=== PATIENT | female | born 1960 | race Caucasian/White ===

== ENCOUNTER 2017-05-17 20:53 | Emergency (ER) | payer MEDICAID ==
[2017-05-17 21:56] LABS: BASOPHILS 0.3 % (0-2); EOSINOPHILS 1.1 % (0-7); HEMATOCRIT 41.8 % (36.0-48.0); HEMOGLOBIN 13.8 g/dL (12-16); IMMATURE GRANULOCYTES 0.3 % (0-5); LYMPHOCYTES 12.8 % (15-50); MCH 33.3 pg (26.0-34.0); MCV 100.7 fL (80.0-100.0); MEAN PLATELET VOLUME 9.1 fL (7.4-10.4); MONOCYTES 5.8 % (2-11); NEUTROPHILS 79.7 % (40-80); PLATELET COUNT 310 10x3/uL (130-400); RBC 4.15 10x6/uL (4.00-5.40); RDW 14.8 % (11.5-14.5); WBC 14.8 10x3/uL (4.8-10.8)
[2017-05-17 22:36] LABS: ALBUMIN 3.8 g/dL (3.4-5.0); ALKALINE PHOSPHATASE 85 U/L (46-116); ALT (SGPT) 21 U/L (10-68); BILIRUBIN - TOTAL 0.17 mg/dL (0.2-1.3); CALC OSMOLALITY 271 mosm/kg (275-300); CALCIUM 8.6 mg/dL (8.5-10.1); CARBON DIOXIDE 28.5 mmol/L (21.0-32.0); CHLORIDE - SERUM 98 mmol/L (98-107); CREATINE KINASE 171 UL (21-215); CREATININE - SERUM 0.9 mg/dL (0.6-1.3); GLUCOSE 88 mg/dL (74-106); LIPASE 86 U/L (73-393); POTASSIUM - SERUM 3.8 mmol/L (3.5-5.1); PRO BNP 119 pg/mL (0-125); PROTEIN - SERUM 7.4 g/dL (6.4-8.2); SODIUM 136 mmol/L (136-145); UREA NITROGEN 16 mg/dL (7-18); eGFR NON AFRICAN AMERICAN 69 mL/min (90-120)
[2017-05-17 22:38] LABS: TROPONIN-I < 0.017 ng/mL (0.000-0.060)
== END 2017-05-17 23:40 | disposition home or self-care (01) ==
LOC: D.ER 20:53
PROVIDERS: Family Medicine
DX: R56.9 Unspecified convulsions (principal)

== ENCOUNTER 2018-08-24 14:17 | Inpatient (IN) | payer MEDICARE ==
[~2018-08-24] VITALS: Ht 168.9 cm; Wt 59.1 kg
[2018-08-24] MEDS ORDERED: ALBUTEROL1.25 MG/3 INH (14:25)
[2018-08-24 14:46] LABS: BASOPHILS 0.2 % (0-2); EOSINOPHILS 2.5 % (0-7); HEMATOCRIT 37.2 % (36.0-48.0); HEMOGLOBIN 11.9 g/dL (12-16); IMMATURE GRANULOCYTES 0.2 % (0-5); LYMPHOCYTES 13.3 % (15-50); MCH 29.6 pg (26.0-34.0); MCV 92.5 fL (80.0-100.0); MEAN PLATELET VOLUME 8.8 fL (7.4-10.4); MONOCYTES 5.6 % (2-11); NEUTROPHILS 78.2 % (40-80); RBC 4.02 10x6/uL (4.00-5.40); RDW 15.7 % (11.5-14.5); WBC 10.5 10x3/uL (4.8-10.8)
[2018-08-24 14:56] LABS: APTT 31.8 SECONDS (22.8-39.4); INR 1.02 (0.85-1.17); PROTIME 12.9 SECONDS (11.6-15.0)
[2018-08-24 14:57] LABS: PLATELET COUNT 492 10x3/uL (130-400)
[2018-08-24 15:00] VITALS: BP 113/74
[2018-08-24 15:17] LABS: ALBUMIN 2.7 g/dL (3.4-5.0); ALKALINE PHOSPHATASE 122 U/L (46-116); ALT (SGPT) 15 U/L (10-68); BILIRUBIN - TOTAL 0.35 mg/dL (0.2-1.3); CALC OSMOLALITY 283 mosm/kg (275-300); CALCIUM 8.6 mg/dL (8.5-10.1); CARBON DIOXIDE 35.6 mmol/L (21.0-32.0); CHLORIDE - SERUM 101 mmol/L (98-107); CKMB 0.8 U/L (0.0-3.6); CREATINE KINASE 103 UL (21-215); CREATININE - SERUM 0.5 mg/dL (0.6-1.3); GLUCOSE 107 mg/dL (74-106); PRO BNP 1076 pg/mL (0-125); PROTEIN - SERUM 7.3 g/dL (6.4-8.2); SODIUM 143 mmol/L (136-145); TROPONIN-I < 0.017 ng/mL (0.000-0.060); UREA NITROGEN 10 mg/dL (7-18); eGFR NON AFRICAN AMERICAN > 90 mL/min (90-120)
[2018-08-24 16:00] VITALS: BP 111/82
[2018-08-24 17:00] VITALS: BP 117/73
[2018-08-24 20:00] VITALS: BP 126/80
[2018-08-25 02:14] VITALS: Ht 168.9 cm; Wt 59.1 kg
--- NOTE | 2018-08-25 03:28 | NUR ---
1930) REC'D IN BED LYIN ON RT. SIDE VISITORS AT BEDSIDE. DENIES ANY RESP. DIFFICULTY AT PRESENT TIME 02 2L NC. WILL CONTINUE TO MONITOR FOR ANY CHGES IN RESP. STATUS AND FOLLOW CURRENT PLAN OF CARE.
[2018-08-25 04:00] VITALS: BP 156/99
--- NOTE | 2018-08-25 04:29 | NUR ---
I have reviewed this patient and I concur with the Shift Assessment completed by the Licensed Practical Nurse today this shift.
[2018-08-25 05:49] LABS: BASOPHILS 0.3 % (0-2); EOSINOPHILS 4.3 % (0-7); HEMATOCRIT 35.6 % (36.0-48.0); HEMOGLOBIN 11.1 g/dL (12-16); IMMATURE GRANULOCYTES 0.2 % (0-5); LYMPHOCYTES 15.1 % (15-50); MCH 28.8 pg (26.0-34.0); MCHC 31.2 g/dL (31.0-37.0); MCV 92.2 fL (80.0-100.0); MEAN PLATELET VOLUME 9.2 fL (7.4-10.4); MONOCYTES 7.6 % (2-11); NEUTROPHILS 72.5 % (40-80); PLATELET COUNT 511 10x3/uL (130-400); RBC 3.86 10x6/uL (4.00-5.40); WBC 10.2 10x3/uL (4.8-10.8)
[2018-08-25 06:10] LABS: ALBUMIN 2.5 g/dL (3.4-5.0); ALKALINE PHOSPHATASE 102 U/L (46-116); ALT (SGPT) 13 U/L (10-68); BILIRUBIN - TOTAL 0.23 mg/dL (0.2-1.3); CALC OSMOLALITY 281 mosm/kg (275-300); CALCIUM 8.5 mg/dL (8.5-10.1); CARBON DIOXIDE 31.8 mmol/L (21.0-32.0); CHLORIDE - SERUM 103 mmol/L (98-107); CREATININE - SERUM 0.5 mg/dL (0.6-1.3); GLUCOSE 97 mg/dL (74-106); POTASSIUM - SERUM 3.4 mmol/L (3.5-5.1); PROTEIN - SERUM 6.6 g/dL (6.4-8.2); SODIUM 142 mmol/L (136-145); TROPONIN-I < 0.017 ng/mL (0.000-0.060); UREA NITROGEN 11 mg/dL (7-18); eGFR NON AFRICAN AMERICAN > 90 mL/min (90-120)
[2018-08-25 08:48] VITALS: BP 114/63
--- NOTE | 2018-08-25 09:05 | NUR ---
MEDICATED WITH MORPHINE FOR C/O RIGHT RIB PAIN RATING 10/10. SISTER AT BEDSIDE. C/L IN REACH.
--- NOTE | 2018-08-25 10:35 | MORECARE ---
CASE MANAGEMENT DISCHARGE SUMMARY PATIENT: XIMENA BECK UNIT: [id number] ADM DATE: 08/24/18 AGE: 58 : 60 SEX: F ROOM/BED: D.[facility] AUTHOR: LORI OSEGUERA PHYSICIAN: REFERRING PHYSICIAN: VIANNEY CHRISTOPHER MD DATE OF SERVICE: 08/25/18 Discharge Plan Patient Name: XIMENA BECK Facility: [facility]:[place] : 1960 Planned Disposition: Anticipated Discharge Date: Discharge Date: Expected LOS: Initial Reviewer: [email or web address] Initial Review Date: 08/24/2018 Generated: 08/25/18 11:35 am Comments DCP- Discharge Planning Updated by [id number]: Kera Stewart on 08/25/18 9:[address] CM went to meet with patient, she has a visitor in the room that states "she's just starting to rest, can you come back later." Informed her I would come back at a later time. CM will continue to follow and assist with discharge planning/needs. Patient Name: XIMENA BECK Page 13858 at 1035 All edits/amendments must be made on the electronic document DICTATION DATE: 08/25/18 1034 DIVISION OPERATIONS SPECIALIST: DANNY 08/25/18 1034 RPT#: [id number] DC DATE: STATUS: ADM IN [facility] [address] [place] [address] END OF REPORT
--- NOTE | 2018-08-25 15:35 | MORECARE ---
CASE MANAGEMENT DISCHARGE SUMMARY PATIENT: XIMENA BECK UNIT: [id number] ADM DATE: 08/24/18 AGE: 58 : 60 SEX: F ROOM/BED: D.2235 AUTHOR: OUMARDOC PHYSICIAN: REFERRING PHYSICIAN: VIANNEY CHRISTOPHER MD DATE OF SERVICE: 08/25/18 Discharge Plan Patient Name: XIMENA BECK Facility: [facility]:[place] : 1960 Planned Disposition: Home Anticipated Discharge Date: Discharge Date: Expected LOS: Initial Reviewer: [id number] Initial Review Date: 08/24/2018 Generated: 08/25/18 4:35 pm Comments DCP- Discharge Planning Updated by [id number]: Kera Stewart on 08/25/18 2:[address] Patient Name: XIMENA BECK Admission Status: ER Accout number: [id number] Admission Date: 08-24-2018 : 1960 Admission Diagnosis: Attending: VIANNEY CHRISTOPHER Current LOS: 1 Anticipated DC Date: Planned Disposition: Home Primary Insurance: UNINSURED DISCOUNT PLAN Discharge Planning Comments: CM met with patient to complete initial dc planning assessment. CM educated patient on the CM role and verbal consent given by patient to complete assessment. Patient lives at home with her sister. Patient plans to return and feels this is a safe discharge. CM discussed availability of home health, rehab services, and medical equipment. Patient denied known discharge needs at this time. States she has oxygen, portable oxygen and a nebulizer. She is unsure which [employer] company supplies this. She does have Medicare A&B and I called [employer] and Edith states they already know and are getting this updated. CM will continue to follow and assist with discharge planning/needs. Risk Assessment Analyst: Kera Stewart DCP- Discharge Planning Updated by [email or web address]: Kera Stewart on 08/25/18 9:[address] CM went to meet with patient, she has a visitor in the room that states "she's just starting to rest, can you come back later." Informed her I would come back at a later time. CM will continue to follow and assist with discharge planning/needs. DCPIA - Discharge Planning Initial Assessment Updated by [email or web address]: Kera Stewart on 08/25/18 3:29 pm * Is the patient Alert and Oriented? Yes * How many steps to enter\\exit or inside your home? Ramp/0 * PCP Dr. Gomez * Pharmacy [facility] in [place] * Preadmission Environment Home with Family * ADLs Independent * Equipment Nebulizer Other Oxygen * Other Equipment Portable oxygen * List name and contact numbers for known caregivers / representatives who currently or will assist patient after discharge: Lamar - sister - unknown number * Verbal permission to speak to the caregivers and representatives has been obtained from the patient. Yes * Community resources currently utilized None * Additional services required to return to the preadmission environment? No * Can the patient safely return to the preadmission environment? Yes * Has this patient been hospitalized within the prior 30 days at any hospital? No Last DP export: 08/25/18 9:35 am Patient Name: XIMENA BECK Page 50325 at 1535 All edits/amendments must be made on the electronic document DICTATION DATE: 08/25/18 1535 INSPECTOR RUBBER STAMP DIE: DANNY 08/25/18 1535 RPT#: [id number] DC DATE: STATUS: ADM IN [facility] [address] [place] [address] END OF REPORT
[2018-08-25 16:47] VITALS: BP 109/54
--- NOTE | 2018-08-25 17:57 | NUR ---
WAS MEDICATED WITH MORPHINE FOR C/O PAIN RATING 10/10. CALL LIGHT IN REACH AT BEDSIDE.
[2018-08-25 21:19] VITALS: BP 111/71
[2018-08-26 00:31] VITALS: BP 116/66
[2018-08-26 05:19] VITALS: BP 125/77
[2018-08-26 05:35] LABS: BASOPHILS 0.4 % (0-2); EOSINOPHILS 4.3 % (0-7); HEMATOCRIT 35.3 % (36.0-48.0); HEMOGLOBIN 11.3 g/dL (12-16); IMMATURE GRANULOCYTES 0.3 % (0-5); LYMPHOCYTES 13.1 % (15-50); MCH 29.7 pg (26.0-34.0); MCV 92.7 fL (80.0-100.0); MEAN PLATELET VOLUME 8.9 fL (7.4-10.4); MONOCYTES 8.6 % (2-11); NEUTROPHILS 73.3 % (40-80); PLATELET COUNT 504 10x3/uL (130-400); RBC 3.81 10x6/uL (4.00-5.40); RDW 15.9 % (11.5-14.5); WBC 10.2 10x3/uL (4.8-10.8)
[2018-08-26 05:59] LABS: ALBUMIN 2.4 g/dL (3.4-5.0); ALKALINE PHOSPHATASE 114 U/L (46-116); ALT (SGPT) 11 U/L (10-68); CALC OSMOLALITY 285 mosm/kg (275-300); CALCIUM 8.2 mg/dL (8.5-10.1); CARBON DIOXIDE 29.2 mmol/L (21.0-32.0); CHLORIDE - SERUM 104 mmol/L (98-107); CREATININE - SERUM 0.7 mg/dL (0.6-1.3); GLUCOSE 126 mg/dL (74-106); POTASSIUM - SERUM 3.8 mmol/L (3.5-5.1); PROTEIN - SERUM 6.8 g/dL (6.4-8.2); SODIUM 142 mmol/L (136-145); UREA NITROGEN 14 mg/dL (7-18)
[2018-08-26 06:00] LABS: eGFR NON AFRICAN AMERICAN > 90 mL/min (90-120)
[2018-08-26 12:53] VITALS: BP 121/84
[2018-08-26 17:19] VITALS: BP 136/50
--- NOTE | 2018-08-26 18:24 | NUR ---
I have reviewed this patient and I concur with the Shift Assessment completed by the Licensed Practical Nurse today this shift.
[2018-08-26 19:00] VITALS: BP 120/74
--- NOTE | 2018-08-26 20:08 | NUR ---
PT GETTING READY FOR BED WHEN ENTERING THE ROOM. PT WEARING SERVICE DEVELOPER. PT HAS NO COMPLAINTS OF PAIN AT THIS TIME. STATES "I AM READY TO GO TO BED SOON, PLEASE." VERBALIZES UNDERSTANDING OF CALL LIGHT SYSTEM AND TO USE WHEN NEEDED.
[2018-08-27 07:14] LABS: BASOPHILS 0.3 % (0-2); EOSINOPHILS 5.3 % (0-7); HEMATOCRIT 32.6 % (36.0-48.0); HEMOGLOBIN 10.4 g/dL (12-16); IMMATURE GRANULOCYTES 0.2 % (0-5); LYMPHOCYTES 15.9 % (15-50); MCH 29.1 pg (26.0-34.0); MCHC 31.9 g/dL (31.0-37.0); MCV 91.3 fL (80.0-100.0); MEAN PLATELET VOLUME 9.1 fL (7.4-10.4); MONOCYTES 8.3 % (2-11); PLATELET COUNT 463 10x3/uL (130-400); RBC 3.57 10x6/uL (4.00-5.40); RDW 15.7 % (11.5-14.5); WBC 8.9 10x3/uL (4.8-10.8)
[2018-08-27 07:23] LABS: ALBUMIN 2.5 g/dL (3.4-5.0); ALKALINE PHOSPHATASE 109 U/L (46-116); BILIRUBIN - TOTAL 0.16 mg/dL (0.2-1.3); CALC OSMOLALITY 278 mosm/kg (275-300); CALCIUM 8.4 mg/dL (8.5-10.1); CARBON DIOXIDE 27.2 mmol/L (21.0-32.0); CHLORIDE - SERUM 103 mmol/L (98-107); GLUCOSE 114 mg/dL (74-106); POTASSIUM - SERUM 4.1 mmol/L (3.5-5.1); PROTEIN - SERUM 6.6 g/dL (6.4-8.2); SODIUM 139 mmol/L (136-145); UREA NITROGEN 12 mg/dL (7-18)
[2018-08-27 07:24] LABS: CREATININE - SERUM 0.5 mg/dL (0.6-1.3); eGFR NON AFRICAN AMERICAN > 90 mL/min (90-120)
[2018-08-27 07:25] LABS: ALT (SGPT) 14 U/L (10-68)
--- NOTE | 2018-08-27 07:30 | NUR ---
PT AAOX4 RESP EVEN AND NONLABORED, NO SIGNS OF DISTRESS NOTED, CL IN REACH WILL CONTINUE TO MONITOR
[2018-08-27 09:50] VITALS: BP 115/77
[2018-08-27 13:29] VITALS: BP 109/71
[2018-08-27 16:21] VITALS: BP 111/71
--- NOTE | 2018-08-27 16:49 | NUR ---
I have reviewed this patient and I concur with the Shift Assessment completed by the Licensed Practical Nurse today this shift.
[2018-08-27 20:00] VITALS: BP 127/70
--- NOTE | 2018-08-27 21:00 | NUR ---
ALERT AND ORIENTED X4. LYING ON LT SIDE IN BED. RESP IRREG, SOB WITH EXERTION. O2 @ 3L/NC. PROD COUGH NOTED WITH GREENISH BROWN SPUTUM. NO ACUTE DISTRESS. BBS EXP WHEEZES. TELEMETRY SHOWS SR WITH RATE OF 87. AMBULATORY. NS @ 10 ML/HR INFUSING IN LT WRIST WITHOUT DIFF. WAS MEDICATED WITH MORHPINE @ 1934. STILL RATES PAIN IN RIBS 10. SR ELEVATED X2. CL IN REACH.
[2018-08-28] VITALS: BP 139/80
--- NOTE | 2018-08-28 03:04 | NUR ---
REQUESTS UD. NOTIFIED RT. NO ACUTE DISTRESS. CL IN REACH.
--- NOTE | 2018-08-28 03:47 | NUR ---
MEDICATED WITH MORPHINE IVP FOR C/O PAIN RATING 10 IN RIBS. CL IN REACH.
[2018-08-28 04:00] VITALS: BP 123/81
[2018-08-28 06:57] LABS: BASOPHILS 0.4 % (0-2); EOSINOPHILS 7.1 % (0-7); HEMATOCRIT 33.3 % (36.0-48.0); HEMOGLOBIN 10.5 g/dL (12-16); IMMATURE GRANULOCYTES 0.3 % (0-5); LYMPHOCYTES 17.2 % (15-50); MCH 28.7 pg (26.0-34.0); MCHC 31.5 g/dL (31.0-37.0); MONOCYTES 11.1 % (2-11); NEUTROPHILS 63.9 % (40-80); PLATELET COUNT 478 10x3/uL (130-400); RBC 3.66 10x6/uL (4.00-5.40); RDW 15.7 % (11.5-14.5); WBC 7.2 10x3/uL (4.8-10.8)
[2018-08-28 07:17] LABS: ALBUMIN 2.5 g/dL (3.4-5.0); ALKALINE PHOSPHATASE 104 U/L (46-116); ALT (SGPT) 16 U/L (10-68); BILIRUBIN - TOTAL 0.21 mg/dL (0.2-1.3); CALCIUM 8.2 mg/dL (8.5-10.1); CARBON DIOXIDE 26.8 mmol/L (21.0-32.0); CHLORIDE - SERUM 104 mmol/L (98-107); CREATININE - SERUM 0.5 mg/dL (0.6-1.3); GLUCOSE 111 mg/dL (74-106); PROTEIN - SERUM 6.7 g/dL (6.4-8.2); SODIUM 140 mmol/L (136-145); eGFR NON AFRICAN AMERICAN > 90 mL/min (90-120)
--- NOTE | 2018-08-28 07:20 | NUR ---
PT AAOX4 RESP EVEN AND NONLABORED, NO SIGNS OF DISTRESS NOTED, CL IN REACH WILL CONTINUE TO MONITOR
[2018-08-28 07:21] LABS: CALC OSMOLALITY 277 mosm/kg (275-300); UREA NITROGEN 6 mg/dL (7-18)
[2018-08-28 12:43] VITALS: BP 132/72
[2018-08-28 16:36] VITALS: BP 125/76
--- NOTE | 2018-08-28 20:00 | NUR ---
SUPINE IN BED. A&O X 4. REPORTS PAIN /. STATES RIB FXs ARE FROM FORCEFUL COUGHING. DENIES NEEDS AT THIS TIME, WILL CONTINUE TO MONITOR.
[2018-08-28 20:38] VITALS: BP 127/79
[2018-08-29 00:42] VITALS: BP 124/71
--- NOTE | 2018-08-29 01:31 | NUR ---
I have reviewed this patient and I concur with the Shift Assessment completed by the Licensed Practical Nurse today this shift.
[2018-08-29 05:07] VITALS: BP 120/76
[2018-08-29 06:09] LABS: ALBUMIN 2.6 g/dL (3.4-5.0); ALKALINE PHOSPHATASE 129 U/L (46-116); ALT (SGPT) 16 U/L (10-68); BILIRUBIN - TOTAL 0.25 mg/dL (0.2-1.3); CALC OSMOLALITY 275 mosm/kg (275-300); CALCIUM 8.6 mg/dL (8.5-10.1); CARBON DIOXIDE 25.2 mmol/L (21.0-32.0); CHLORIDE - SERUM 103 mmol/L (98-107); CREATININE - SERUM 0.5 mg/dL (0.6-1.3); GLUCOSE 106 mg/dL (74-106); POTASSIUM - SERUM 3.9 mmol/L (3.5-5.1); PROTEIN - SERUM 7.3 g/dL (6.4-8.2); SODIUM 139 mmol/L (136-145); eGFR NON AFRICAN AMERICAN > 90 mL/min (90-120)
[2018-08-29 06:10] LABS: UREA NITROGEN 8 mg/dL (7-18)
[2018-08-29 06:52] LABS: BASOPHILS 0.1 % (0-2); EOSINOPHILS 6.4 % (0-7); HEMATOCRIT 33.2 % (36.0-48.0); HEMOGLOBIN 10.4 g/dL (12-16); IMMATURE GRANULOCYTES 0.1 % (0-5); LYMPHOCYTES 19.3 % (15-50); MCH 28.8 pg (26.0-34.0); MCHC 31.3 g/dL (31.0-37.0); MEAN PLATELET VOLUME 9.2 fL (7.4-10.4); MONOCYTES 12.3 % (2-11); NEUTROPHILS 61.8 % (40-80); PLATELET COUNT 515 10x3/uL (130-400); RBC 3.61 10x6/uL (4.00-5.40); RDW 15.9 % (11.5-14.5); WBC 7.7 10x3/uL (4.8-10.8)
[2018-08-29 08:20] VITALS: BP 127/73
[2018-08-29 12:30] VITALS: BP 108/72
--- NOTE | 2018-08-29 12:57 | NUR ---
PT STATED SHE HAS HAD FLU SHOT FOR THIS YEAR
[2018-08-29] MEDS ORDERED: MIRALAX17 GM PO (15:13)
[2018-08-29] MEDS ORDERED: HYDROCODON-ACE1 EA10 PO (15:13)
[2018-08-29] MEDS ORDERED: ZITHROMAX500 MG PO (15:15)
[2018-08-29] MEDS ORDERED: IPRAT-ALBUT 0.5-3 ML UPD (15:24)
[2018-08-29] MEDS ORDERED: ALBUTEROL SULF8.5 GM INH (15:24)
--- NOTE | 2018-08-29 17:46 | MORECARE ---
CASE MANAGEMENT DISCHARGE SUMMARY PATIENT: XIMENA BECK UNIT: [id number] ADM DATE: 08/24/18 AGE: 58 : 60 SEX: F ROOM/BED: D.2235 AUTHOR: OUMAR,DOC PHYSICIAN: REFERRING PHYSICIAN: VIANNEY CHRISTOPHER MD DATE OF SERVICE: 08/29/18 Discharge Plan Patient Name: XIMENA BECK Facility: [facility]:[place] : 1960 Planned Disposition: Home Anticipated Discharge Date: 08/29/18 Discharge Date: Expected LOS: 5 Initial Reviewer: [email or web address] Initial Review Date: 08/24/2018 Generated: 08/29/18 6:46 pm Comments DCP- Discharge Planning Updated by [id number]: Kera Stewart on 08/25/18 1:[address] Patient Name: XIMENA BECK Admission Status: ER Accout number: [id number] Admission Date: 08-24-2018 : 1960 Admission Diagnosis: Attending: VIANNEY CHRISTOPHER Current LOS: 1 Anticipated DC Date: Planned Disposition: Home Primary Insurance: UNINSURED DISCOUNT PLAN Discharge Planning Comments: CM met with patient to complete initial dc planning assessment. CM educated patient on the CM role and verbal consent given by patient to complete assessment. Patient lives at home with her sister. Patient plans to return and feels this is a safe discharge. CM discussed availability of home health, rehab services, and medical equipment. Patient denied known discharge needs at this time. States she has oxygen, portable oxygen and a nebulizer. She is unsure which [employer] company supplies this. She does have Medicare A&B and I called [employer] and Edith states they already know and are getting this updated. CM will continue to follow and assist with discharge planning/needs. Shove Up: Kera Stewart DCP- Discharge Planning Updated by [id number]: Kera Stewart on 08/25/18 8:[address] CM went to meet with patient, she has a visitor in the room that states "she's just starting to rest, can you come back later." Informed her I would come back at a later time. CM will continue to follow and assist with discharge planning/needs. DCPIA - Discharge Planning Initial Assessment Updated by [id number]: Kera Stewart on 08/25/18 3:29 pm * Is the patient Alert and Oriented? Yes * How many steps to enter\\exit or inside your home? Ramp/0 * PCP Dr. Gomez * Pharmacy [facility] in [place] * Preadmission Environment Home with Family * ADLs Independent * Equipment Nebulizer Other Oxygen * Other Equipment Portable oxygen * List name and contact numbers for known caregivers / representatives who currently or will assist patient after discharge: Lamar - - unknown number * Verbal permission to speak to the caregivers and representatives has been obtained from the patient. Yes * Community resources currently utilized None * Additional services required to return to the preadmission environment? No * Can the patient safely return to the preadmission environment? Yes * Has this patient been hospitalized within the prior 30 days at any hospital? No Last DP export: 08/25/18 1:35 pm Patient Name: XIMENA BECK Page 12650 at 1746 All edits/amendments must be made on the electronic document DICTATION DATE: 08/29/181745 CLEANING MATRON: DANNY 08/29/181745 RPT#: [id number] DC DATE: STATUS: ADM IN [facility] [address] [place] [address] END OF REPORT
[2018-08-29 17:53] VITALS: BP 105/78
--- NOTE | 2018-08-29 19:10 | MORECARE ---
CASE MANAGEMENT DISCHARGE SUMMARY PATIENT: XIMENA BECK UNIT: [id number] ADM DATE: 08/24/18 AGE: 58 : 60 SEX: F ROOM/BED: D.2235 AUTHOR: OUMAR,DOC PHYSICIAN: REFERRING PHYSICIAN: VIANNEY CHRISTOPHER MD DATE OF SERVICE: 08/29/18 Discharge Plan Patient Name: XIMENA BECK Facility: [facility]:[place] : 1960 Planned Disposition: Home Anticipated Discharge Date: 08/29/18 Discharge Date: 08/29/2018 Expected LOS: 5 Initial Reviewer: [email or web address] Initial Review Date: 08/24/2018 Generated: 08/29/18 8:10 pm Comments DCP- Discharge Planning Updated by [email or web address]: Elyssa Meadows on 08/29/18 6:[address] LATE ENTRY 1000 PATIENT REPORTEDLY NOT DISCHARGED DUE TO LACK OF TRANSPORTATION YESTERDAY. HER DAUGHTER IS TO ARRANGE TRANSPORTATION TO HOME FOR TODAY. NO DISCHARGE ORDERS THIS EARLY AM. PATIENT IS ON 3/L OF NASAL O2 AT REST. SHE HAS OXYGEN AND NEBULIZER AT HOME. SHE NORMALLY WEARS HER OXYGEN AT NIGHT. CM NOTIFIED THIS EARLY AFTERNOON THE PATIENT NEEDED TRANSPORTATION. WILL ARRANGE FOR [facility] TRANSPORT. TC TO [phone]. CM ADVISED COST TO [place] WOULD BE $70.00. DISCUSSED W/ CM PRODUCTION STATISTICAL CLERK, TARA MCCOY. APPROVED. CALL W/ FEE. CM REQUEST FOR PATIENT RM AIR SAT TO BE OBTAINED SHE HAS NO PORTABLE OXYGEN AT THE BEDSIDE. SHE DID NOT KNOW HER PROVIDER, CM CALLED DME PROVIDERS. [facility] IN [place] IS HER DME SUPPLIER. CM SPOKE W/ ANDRÉS. PATIENT ONLY APPROVED FOR OXYGEN AT [facility]. HAS CONCENTRATOR AND BACKUP UNIT. [facility] FAXED PAPERWORK , [facility] FOR [facility] MEDS, DUONEB AND PORTABLE OXYGEN UNIT. TC TO DR UGARTE AND MARIO. FORM COMPLETED. AWAITED MD VISIT FOR SIGNATURE. FAXED H/P, DISCHARGE MED LIST AND DISCHARGE SUMMARY TO [facility] AT [phone]. SPOKE WITH ANDRÉS. FAXED RM AIR O2 SAT AT REST- 87%- PROVIDED BY RESPIRATORY THERAPIST. DISCUSSED DISCHARGE IMM. PATIENT UNDERSTOOD. NO QUESTIONS NO CONCERNS. SIGNATURE OBTAINED . COPY TO THE PATIENT. COPY TO THE CHART. FAXED YUDELKA AND DISCHARGE SUMMARY WHEN AVAILABLE W/ D/C MED LIST TO [facility]. PATIENT ASSISTED W/ $20.00 FOR HER ANTIBIOTIC SHE HAS NO MONEY. PRIVATE FUNDS FROM STAFF MEMBER. PORTABLE OXYGEN DELIVERED TO THE BEDSIDE. [facility] EXPLAINED HOW TO OPERATE FOR APPROXIMATELY 20 MINUTES/ [facility] CALLED. RN DISCHARGED PATIENT TO HOME VIA [facility] W/ PORTABLE OXYGEN. DCP- Discharge Planning Updated by [id number]: Kera Saavedramarina on 08/25/18 1:[address] Patient Name: XIMENA BECK Admission Status: ER Accout number: [id number] Admission Date: 08-24-2018 : 1960 Admission Diagnosis: Attending: VIANNEY CHRISTOPHER Current LOS: 1 Anticipated DC Date: Planned Disposition: Home Primary Insurance: UNINSURED DISCOUNT PLAN Discharge Planning Comments: CM met with patient to complete initial dc planning assessment. CM educated patient on the CM role and verbal consent given by patient to complete assessment. Patient lives at home with her sister. Patient plans to return and feels this is a safe discharge. CM discussed availability of home health, rehab services, and medical equipment. Patient denied known discharge needs at this time. States she has oxygen, portable oxygen and a nebulizer. She is unsure which [employer] company supplies this. She does have Medicare A&B and I called [employer] and Edith states they already know and are getting this updated. CM will continue to follow and assist with discharge planning/needs. Dental Amalgam Processor: Kera Pat DCP- Discharge Planning Updated by [id number]: Kera Pat on 08/25/18 8:[address] CM went to meet with patient, she has a visitor in the room that states "she's just starting to rest, can you come back later." Informed her I would come back at a later time. CM will continue to follow and assist with discharge planning/needs. DCPIA - Discharge Planning Initial Assessment Updated by [id number]: Kera Pat on 08/25/18 3:29 pm * Is the patient Alert and Oriented? Yes * How many steps to enter\\exit or inside your home? Ramp/0 * PCP Dr. Gomez * Pharmacy [facility] in [place] * Preadmission Environment Home with Family * ADLs Independent * Equipment Nebulizer Other Oxygen * Other Equipment Portable oxygen * List name and contact numbers for known caregivers / representatives who currently or will assist patient after discharge: Lamar ellington - unknown number * Verbal permission to speak to the caregivers and representatives has been obtained from the patient. Yes * Community resources currently utilized None * Additional services required to return to the preadmission environment? No * Can the patient safely return to the preadmission environment? Yes * Has this patient been hospitalized within the prior 30 days at any hospital? No Coverage Notice Reviewer: [id number] [place] Notice Issued Date-Time: 08/29/2018 13:23 Notice Type: IM Discharge Notice Notice Delivered To: Patient Relationship to Patient: Work Over Rig Operator Name: Delivery Method: HAND - Hand Delivered Nadeen Days: Prior Verbal Notification: Recipient Understood Notice: Yes Recipient Signature: Yes Med Rec Note Co-signed by Attending: Coverage Notice Comment: DISCUSSED DISCHARGE IMM. PATIENT UNDERSTOOD. NO QUESTIONS OR CONCERNS. COPY TO THE PATIENT. COPY TO THE HARD COVER CHART. Last DP export: 08/29/18 4:46 p Patient Name: XIMENA BECK Page 01570 at 1910 All edits/amendments must be made on the electronic document DICTATION DATE: 08/29/181908 MANAGER TRANSFUSION: DANNY 08/29/181908 RPT#: [id number] DC DATE:08/29/18 STATUS: DIS IN [facility] [address] [place] [address] END OF REPORT
--- NOTE | 2018-08-31 15:08 | MORECARE ---
CASE MANAGEMENT DISCHARGE SUMMARY PATIENT: XIMENA BECK UNIT: [id number] ADM DATE: 08/24/18 AGE: 58 : 60 SEX: F ROOM/BED: D.2235 AUTHOR: OUMAR,DOC PHYSICIAN: REFERRING PHYSICIAN: VIANNEY CHRISTOPHER MD DATE OF SERVICE: 08/31/18 Discharge Plan Patient Name: XIMENA BECK Facility: [facility]:[place] : 1960 Planned Disposition: Home Anticipated Discharge Date: 08/29/18 Discharge Date: 08/29/2018 Expected LOS: 5 Initial Reviewer: [email or web address] Initial Review Date: 08/24/2018 Generated: 08/31/18 4:08 pm Comments DCP- Discharge Planning Updated by [id number]: Elyssa Meadows on 08/29/18 6:[address] LATE ENTRY 1000 PATIENT REPORTEDLY NOT DISCHARGED DUE TO LACK OF TRANSPORTATION YESTERDAY. HER DAUGHTER IS TO ARRANGE TRANSPORTATION TO HOME FOR TODAY. NO DISCHARGE ORDERS THIS EARLY AM. PATIENT IS ON 3/L OF NASAL O2 AT REST. SHE HAS OXYGEN AND NEBULIZER AT HOME. SHE NORMALLY WEARS HER OXYGEN AT NIGHT. CM NOTIFIED THIS EARLY AFTERNOON THE PATIENT NEEDED TRANSPORTATION. WILL ARRANGE FOR [facility] TRANSPORT. TC TO [phone]. CM ADVISED COST TO [place] WOULD BE $70.00. DISCUSSED W/ CM CARE COORDINATION MANAGER, TARA MCCOY. APPROVED. CALL W/ FEE. CM REQUEST FOR PATIENT RM AIR SAT TO BE OBTAINED SHE HAS NO PORTABLE OXYGEN AT THE BEDSIDE. SHE DID NOT KNOW HER PROVIDER, CM CALLED DME PROVIDERS. [facility] IN [place] IS HER DME SUPPLIER. CM SPOKE W/ ANDRÉS. PATIENT ONLY APPROVED FOR OXYGEN AT [facility]. HAS CONCENTRATOR AND BACKUP UNIT. [facility] FAXED PAPERWORK , [place] FOR [facility] MEDS, DUONEB AND PORTABLE OXYGEN UNIT. TC TO DR UGARTE AND MARIO. FORM COMPLETED. AWAITED MD VISIT FOR SIGNATURE. FAXED H/P, DISCHARGE MED LIST AND DISCHARGE SUMMARY TO [facility] AT [phone]. SPOKE WITH ANDRÉS. FAXED RM AIR O2 SAT AT REST- 87%- PROVIDED BY RESPIRATORY THERAPIST. DISCUSSED DISCHARGE IMM. PATIENT UNDERSTOOD. NO QUESTIONS NO CONCERNS. SIGNATURE OBTAINED . COPY TO THE PATIENT. COPY TO THE CHART. FAXED YUDELKA AND DISCHARGE SUMMARY WHEN AVAILABLE W/ D/C MED LIST TO [facility]. PATIENT ASSISTED W/ $20.00 FOR HER ANTIBIOTIC SHE HAS NO MONEY. PRIVATE FUNDS FROM STAFF MEMBER. PORTABLE OXYGEN DELIVERED TO THE BEDSIDE. [facility] EXPLAINED HOW TO OPERATE FOR APPROXIMATELY 20 MINUTES/ [facility] CALLED. RN DISCHARGED PATIENT TO HOME VIA [facility] W/ PORTABLE OXYGEN. DCP- Discharge Planning Updated by [email or web address]: Kera Saavedramarina on 08/25/18 1:[address] Patient Name: XIMENA BECK Admission Status: ER Accout number: [id number] Admission Date: 08-24-2018 : 1960 Admission Diagnosis: Attending: VIANNEY CHRISTOPHER Current LOS: 1 Anticipated DC Date: Planned Disposition: Home Primary Insurance: UNINSURED DISCOUNT PLAN Discharge Planning Comments: CM met with patient to complete initial dc planning assessment. CM educated patient on the CM role and verbal consent given by patient to complete assessment. Patient lives at home with her sister. Patient plans to return and feels this is a safe discharge. CM discussed availability of home health, rehab services, and medical equipment. Patient denied known discharge needs at this time. States she has oxygen, portable oxygen and a nebulizer. She is unsure which [employer] company supplies this. She does have Medicare A&B and I called [employer] and Edith states they already know and are getting this updated. CM will continue to follow and assist with discharge planning/needs. Chief Medical Technologist: Kera Pat DCP- Discharge Planning Updated by [email or web address]: Kera Pat on 08/25/18 8:[address] CM went to meet with patient, she has a visitor in the room that states "she's just starting to rest, can you come back later." Informed her I would come back at a later time. CM will continue to follow and assist with discharge planning/needs. DCPIA - Discharge Planning Initial Assessment Updated by [id number]: Kera Pat on 08/25/18 3:29 pm * Is the patient Alert and Oriented? Yes * How many steps to enter\\exit or inside your home? Ramp/0 * PCP Dr. Gomez * Pharmacy [facility] in [place] * Preadmission Environment Home with Family * ADLs Independent * Equipment Nebulizer Other Oxygen * Other Equipment Portable oxygen * List name and contact numbers for known caregivers / representatives who currently or will assist patient after discharge: Lamar ellington - unknown number * Verbal permission to speak to the caregivers and representatives has been obtained from the patient. Yes * Community resources currently utilized None * Additional services required to return to the preadmission environment? No * Can the patient safely return to the preadmission environment? Yes * Has this patient been hospitalized within the prior 30 days at any hospital? No Coverage Notice Reviewer: [id number] [place] Notice Issued Date-Time: 08/29/2018 13:23 Notice Type: IM Discharge Notice Notice Delivered To: Patient Relationship to Patient: Research Instrumentation Technician Name: Delivery Method: HAND - Hand Delivered Nadeen Days: Prior Verbal Notification: Recipient Understood Notice: Yes Recipient Signature: Yes Med Rec Note Co-signed by Attending: Coverage Notice Comment: DISCUSSED DISCHARGE IMM. PATIENT UNDERSTOOD. NO QUESTIONS OR CONCERNS. COPY TO THE PATIENT. COPY TO THE HARD COVER CHART. Last DP export: 08/29/18 6:10 p Patient Name: XIMENA BECK Page 53622 at 1508 All edits/amendments must be made on the electronic document DICTATION DATE: 08/31/18 1507 SULFUR BURNER: DANNY 08/31/18 1507 RPT#: [id number] DC DATE:08/29/18 STATUS: DIS IN [facility] [address] [place] [address] END OF REPORT
== END 2018-08-29 18:42 | disposition home or self-care (01) | DRG 189 ==
LOC: D.ER 14:17 → D.MS 17:21 → D.EDHOLD 17:21 → D.MS 17:43
PROVIDERS: Family Medicine; ADMIT Emergency Medicine; ATTEND Emergency Medicine
DX: J96.02 Acute respiratory failure with hypercapnia (principal); S22.42XA Multiple fractures of ribs, left side, initial encounter for closed fracture; F17.213 Nicotine dependence, cigarettes, with withdrawal; J96.01 Acute respiratory failure with hypoxia; J40 Bronchitis, not specified as acute or chronic; J47.9 Bronchiectasis, uncomplicated

== ENCOUNTER 2019-10-20 14:32 | Inpatient (IN) | payer MEDICARE ==
[~2019-10-20] VITALS: Ht 168.9 cm; Wt 61.2 kg
--- NOTE | ~2019-10-20 | EC ---
PATIENT:XIMENA BECK DATE OF SERVICE: 10/20/19 SEX: F MEDICAL RECORD: [id number] DATE OF : 60 LOCATION:[facility] AGE OF PATIENT: 59 ADMISSION DATE: 10/20/19 REFERRING PHYSICIAN: INTERPRETING PHYSICIAN: SURYA CRENSHAW MD ECHOCARDIOGRAM REPORT ECHO CHARGES 4 ECHO COMPLETE Date: 10/21/19 CLINICAL DIAGNOSIS: CVA ECHOCARDIOGRAPHIC MEASUREMENTS (adult normal given) AC root (d.<3.7cm) 3.1 cm LV Septum d (<1.2 cm> 1.1 cm Valve Excursion 1.5 cm LV Septum (systole) 1.2 cm Left Atria (s.<4.0cm> 3.7 cm LVPW d(<1.2cm) 1.2 cm RV (d.<2.3cm) 3.8 cm LVPW (sytole) 1.3 cm LV diastole(<5.6CM) 4.7 cm MV E-F(>70mm/sec) cm LV systole 3.7 cm LVOT Diameter 1.9 cm MV exc.(>10mm) 0.6 cm Est.ejection fraction (50-75%) % DOPPLER: LVIT cm/sec A 72.0 cm/sec E 50.0 cm/sec LA cm/sec RVSP 28 mmHg LVOT 76 cm/sec AOP1/2T m/s Asc. Ao 99 cm/sec RVOT 57 cm/sec RA cm/sec PA 81 cm/sec AV Gradient Peak 3.92 mmHg AV Mean 1.83 mmHg AV Area 2.2 cm MV Gradient Peak 2.32 mmHg MV Mean 0.81 mmHg MV Area cm COMMENTS: Meat Inspector: 2 ALIZE ARRINGTON Bi Consultant: 4 Dr. Crenshaw TAPE# PACS Pericardial Effusion N DATE OF SERVICE: PROCEDURE: Transthoracic echocardiogram. FINDINGS: 1. Left ventricle shows mildly decreased left ventricular systolic function, ejection fraction 40% to 45%. The patient has wall motion abnormalities in the septal area, but there is hyperdynamic wall motion in the posterior and inferior regions of the heart. 2. Left atrium is normal size, shape, structure, and function. ECHOCARDIOGRAM REPORT [id number] XIMENA BECK 3. Aortic valve is normal. 4. Mitral valve has mild mitral regurgitation. 5. Tricuspid valve is normal with normal right ventricular systolic pressures. 6. Right ventricle and right atrium are mildly dilated. 7. Pericardium is normal. 8. Pulmonic valve is normal. TRANSINT:[id number] Voice Confirmation ID: [id number] DOCUMENT ID: [id number] SURYA CRENSHAW MD CC: [id number] DICTATION DATE: 10/22/19 1158 COREMAKER APPRENTICE: 10/22/19 1329 ADM IN [facility] [address] [place] [address]
[~2019-10-20 14:32] MED LIST: ALBUTEROL SULF8.5 GM INH; ALBUTEROL1.25 MG/3 INH; HYDROCODON-ACE1 EA10 PO; IPRAT-ALBUT 0.5-3 ML UPD; MIRALAX17 GM PO; ZITHROMAX500 MG PO
[2019-10-20 15:04] LABS: BASOPHILS 0.7 % (0-2); EOSINOPHILS 5.6 % (0-7); HEMATOCRIT 39.3 % (36.0-48.0); HEMOGLOBIN 12.2 g/dL (12-16); IMMATURE GRANULOCYTES 0.1 % (0-5); LYMPHOCYTES 16.4 % (15-50); MCV 93.6 fL (80.0-100.0); MEAN PLATELET VOLUME 9.1 fL (7.4-10.4); MONOCYTES 8.7 % (2-11); NEUTROPHILS 68.5 % (40-80); PLATELET COUNT 438 10x3/uL (130-400); RDW 14.2 % (11.5-14.5); WBC 6.8 10x3/uL (4.8-10.8)
[2019-10-20 15:14] LABS: CALC OSMOLALITY 273 mosm/kg (275-300); CALCIUM 8.9 mg/dL (8.5-10.1); CARBON DIOXIDE 29.9 mmol/L (21.0-32.0); CHLORIDE - SERUM 101 mmol/L (98-107); CREATININE - SERUM 0.7 mg/dL (0.6-1.3); GLUCOSE 107 mg/dL (74-106); POTASSIUM - SERUM 3.4 mmol/L (3.5-5.1); SODIUM 138 mmol/L (136-145); UREA NITROGEN 6 mg/dL (7-18); eGFR NON AFRICAN AMERICAN > 90 mL/min (90-120)
[2019-10-20 15:20] LABS: ALBUMIN 3.4 g/dL (3.4-5.0); ALKALINE PHOSPHATASE 162 U/L (30-120); ALT (SGPT) 13 U/L (10-68); BILIRUBIN - TOTAL 0.28 mg/dL (0.2-1.3); PROTEIN - SERUM 8.4 g/dL (6.4-8.2)
[2019-10-20 15:31] LABS: APTT 31.9 SECONDS (22.8-39.4); INR 0.93 (0.85-1.17); PROTIME 12.5 SECONDS (11.6-15.0)
--- NOTE | 2019-10-20 15:40 | NUR ---
TO MRI VIA STRETCHER PER TECH
--- NOTE | 2019-10-20 15:49 | NUR ---
PATIENT STATES SHE STARTED HAVING STROKE LIKE SYMPTOMS 33 HRS PRIOR TO ARRIVAL, LAST KNOW WELL TIME 0445 10/19/19. STATES SHE HAD SLURRED SPEECH WHICH HAS RESOLVED, AT THIS TIME WEAKNESS TO LEFT SIDE, PATIENT IS A+O X3.
[2019-10-20 15:58] VITALS: BP 131/64
--- NOTE | 2019-10-20 16:20 | NUR ---
BACK FROM MRI, HOOKED UP TO THE MONITOR
[2019-10-20 16:30] VITALS: BP 123/77
--- NOTE | 2019-10-20 18:41 | NUR ---
DR. YEH NOTIFIED OF CONSULT. INFORMED HIM OF DX AND SYMPTOMS. DR. YEH STATES HE WILL SEE PT IN AM.
--- NOTE | 2019-10-20 19:30 | NUR ---
LYING IN BED. ALERT AND ORIENTED X4. SPEECH IS SLURRED. LT ARM IS FLACCID. SLIGHT LT SIDED FACIAL DROOP. PT GIVEN APPLE SAUCE AND SWALLOWED WITHOUT DIFF. PT GIVEN WATER AND SWALLOWED WITHOUT DIFF. NO COUGHING AFTERWARDS. EYES STAY GAZED TOWARDS THE RIGHT BUT ABLE TO MOVES EYES TO LEFT WHEN INSTRUCTED. RESP EVEN AND NONLABORED. O2 @ 2L/NC. BBS COARSE. REPORTS PROD COUGH WITH YELLOW SPUTUM X 3WEEKS. SORE NOTED TO RT FOOT IS BLEEDING. SALINE LOCK NOTED TO RT WRIST. NAYELI ALARM ON. SR ELEVATED X2. CL IN REACH. PUREWICK APPLIED FOR INCONT.
[2019-10-20 20:00] VITALS: BP 117/73
[2019-10-20 20:13] LABS: CKMB 2.2 U/L (0.0-3.6); CREATINE KINASE 62 UL (21-215)
[2019-10-20 20:14] LABS: TROPONIN-I < 0.017 ng/mL (0.000-0.060)
[2019-10-20 21:27] VITALS: BP 117/73; BMI 21.5
--- NOTE | 2019-10-20 23:00 | NUR ---
EKG DONE AT THIS TIME. PT HAS BEEN SLEEPING WELL. NO DISTRESS. DENIES NEEDS. CL IN REACH.
[2019-10-20 23:45] LABS: CKMB 1.9 U/L (0.0-3.6); CREATINE KINASE 60 UL (21-215)
[2019-10-20 23:46] LABS: TROPONIN-I < 0.017 ng/mL (0.000-0.060)
[2019-10-21] VITALS: BP 110/72
[2019-10-21 04:00] VITALS: BP 111/70
[2019-10-21 05:34] LABS: BASOPHILS 1.3 % (0-2); EOSINOPHILS 7.4 % (0-7); HEMATOCRIT 37.6 % (36.0-48.0); HEMOGLOBIN 11.6 g/dL (12-16); LYMPHOCYTES 24.2 % (15-50); MCHC 30.9 g/dL (31.0-37.0); MEAN PLATELET VOLUME 9.3 fL (7.4-10.4); MONOCYTES 10.3 % (2-11); NEUTROPHILS 56.8 % (40-80); PLATELET COUNT 471 10x3/uL (130-400); RDW 14.6 % (11.5-14.5); WBC 5.5 10x3/uL (4.8-10.8)
[2019-10-21 06:05] LABS: ALBUMIN 2.9 g/dL (3.4-5.0); ALKALINE PHOSPHATASE 132 U/L (30-120); ALT (SGPT) 13 U/L (10-68); BILIRUBIN - TOTAL 0.36 mg/dL (0.2-1.3); CALC OSMOLALITY 273 mosm/kg (275-300); CALCIUM 8.7 mg/dL (8.5-10.1); CARBON DIOXIDE 27.6 mmol/L (21.0-32.0); CHLORIDE - SERUM 102 mmol/L (98-107); CKMB 1.9 U/L (0.0-3.6); CREATINE KINASE 57 UL (21-215); CREATININE - SERUM 0.6 mg/dL (0.6-1.3); GLUCOSE 105 mg/dL (74-106); MAGNESIUM - SERUM 2.1 mg/dL (1.8-2.4); POTASSIUM - SERUM 3.9 mmol/L (3.5-5.1); PROTEIN - SERUM 7.5 g/dL (6.4-8.2); SODIUM 138 mmol/L (136-145); TROPONIN-I < 0.017 ng/mL (0.000-0.060); UREA NITROGEN 7 mg/dL (7-18); eGFR NON AFRICAN AMERICAN > 90 mL/min (90-120)
--- NOTE | 2019-10-21 07:15 | NUR ---
PT RESTING QUIETLY IN BED. O2 @ 2L NC IN PLACE. AWAKE ALERT AND ORIENTED X4. PT EYES VEER TO RIGHT WHEN TALKING TO PT. WHEN PROMPTED TO LOOK AT STAFF FOR ASSESSMENT, PT EYES TURN TOWARDS STAFF THEN VEER TO RIGHT GLARE. PT RIGHT SIDE STRONG, LEFT UPPER EXTREMITY FLACCID, DENIES ABILITY TO MOVE THIS EXTREMITY. PT LEFT LOWER EXTREMITY WEAKNESS NOTED, BUT ABILITY TO MOVE EXTREMITY. DENIES PAIN AT THIS TIME. CL WITHIN REACH. ENCOURAGED TO CALL WITH NEEDS. CONTINUE POC
[2019-10-21 08:00] VITALS: BP 119/72
[2019-10-21 08:53] VITALS: Ht 168.9 cm; Wt 61.2 kg
[2019-10-21 11:10] LABS: CHOL - HDL RATIO 3.4 ratio (2.3-4.1); LDL-HDL RATIO 2.1 ratio (1.5-3.5)
[2019-10-21 12:05] VITALS: BP 121/80
[2019-10-21 16:00] VITALS: BP 123/65
--- NOTE | 2019-10-21 19:00 | NUR ---
BEDSIDE REPORT RECEIVED AND CARE OF PT ASSUMED. PT LYING ON RIGHT SIDE WITH BED AT 20 DEGREES. IV TO RIGHT WRIST SALINE LOCKED. TELEMETRY IN PLACE AND READING SR AT THIS ASSESSMENT. WILL MONITOR FOR NEEDS.
[2019-10-21 19:43] VITALS: BP 113/56
--- NOTE | 2019-10-21 20:30 | NUR ---
DAUGHTER CALLED FOR UPDATE.
--- NOTE | 2019-10-21 21:02 | NUR ---
CALLED RT PER PT REQUEST FOR PRN UPDRAFT TREATMENT.
[2019-10-22] VITALS: BP 125/84
--- NOTE | 2019-10-22 01:06 | NUR ---
PT TOOK OFF HUMAN INTELLIGENCE AND IS REFUSING TO WEAR ANY LONGER...SAYS IT IS STRANGLING HER. RETURNED TO STOCKFEED MILLER.
--- NOTE | 2019-10-22 01:30 | NUR ---
PT BATHED AND ALL LINENS AND GOWN CHANGED. NEW PUREWICK PLACED.
[2019-10-22 04:00] VITALS: BP 151/84
--- NOTE | 2019-10-22 05:47 | NUR ---
PT C/O CRAMPING IN HER HANDS...TOLD WE WOULD REVIEW LABS FOR ELECTROLYTE IMBALANCES.
[2019-10-22 06:28] LABS: BASOPHILS 0.9 % (0-2); EOSINOPHILS 7.9 % (0-7); HEMOGLOBIN 11.3 g/dL (12-16); IMMATURE GRANULOCYTES 0.1 % (0-5); LYMPHOCYTES 19.4 % (15-50); MCH 29.2 pg (26.0-34.0); MCHC 31.4 g/dL (31.0-37.0); MEAN PLATELET VOLUME 9.3 fL (7.4-10.4); MONOCYTES 9.8 % (2-11); NEUTROPHILS 61.9 % (40-80); PLATELET COUNT 447 10x3/uL (130-400); RBC 3.87 10x6/uL (4.00-5.40); RDW 14.4 % (11.5-14.5); WBC 8.1 10x3/uL (4.8-10.8)
[2019-10-22 07:02] LABS: ALBUMIN 2.8 g/dL (3.4-5.0); ALKALINE PHOSPHATASE 127 U/L (30-120); ALT (SGPT) 13 U/L (10-68); BILIRUBIN - TOTAL 0.38 mg/dL (0.2-1.3); CALCIUM 8.6 mg/dL (8.5-10.1); CARBON DIOXIDE 25.8 mmol/L (21.0-32.0); CHLORIDE - SERUM 102 mmol/L (98-107); CREATININE - SERUM 0.5 mg/dL (0.6-1.3); GLUCOSE 99 mg/dL (74-106); MAGNESIUM - SERUM 1.9 mg/dL (1.8-2.4); PROTEIN - SERUM 7.2 g/dL (6.4-8.2); SODIUM 136 mmol/L (136-145); eGFR NON AFRICAN AMERICAN > 90 mL/min (90-120)
[2019-10-22 07:06] LABS: CALC OSMOLALITY 270 mosm/kg (275-300); UREA NITROGEN 10 mg/dL (7-18)
[2019-10-22 08:03] VITALS: BP 130/74
--- NOTE | 2019-10-22 10:56 | NUR ---
PT RESTING IN BED WITH HOB ELEVATED. PT PLEASANT, UTILIZING EXERCISES THERAPY HAS EDUCATED USING. DENIES FURTHER NEEDS AT THIS TIME. CL WITHIN REACH. ENCOURAGED TO CALL WITH NEEDS.
--- NOTE | 2019-10-22 12:35 | NUR ---
PT SITTING UP IN BED EATING LUNCH. PT DENIES PAIN AT THIS TIME. PT IS HAVING MORE MOVEMENT IN LEFT UPPER EXTREMITY, BUT PT DOES BECOME TEARFUL AT TIMES DUE TO EVENTS. REASSURANCE AND ENCOURAGEMENT PROVIDED TO PT. PT DENIES FURTHER NEEDS AT THIS TIME. CL WITHIN REACH. ENCOURAGED TO CALL WITH NEEDS.
[2019-10-22 12:41] LABS: % SATURATION 11 % (15-55); IRON 31 ug/dl (35-150); TOTAL IRON BIND CAPACITY 266 ug/dl (260-445); UNSAT IRON BIND CAPACITY 235 ug/dl (150-375)
[2019-10-22 13:03] VITALS: BP 126/82
--- NOTE | 2019-10-22 14:00 | NUR ---
PT RESTING IN BED WATCHING TV. PT REQUEST INFORMATION REGARDING CONTINUATION OF HOME MEDICATIONS. EDUCATED REGARDING CONTINUATION OF HOME MEDICATIONS AND MD WOULD HAVE TO ORDER MEDICATIONS. PT VOICES UNDERSTANDING.
[2019-10-22 17:32] VITALS: BP 111/77
--- NOTE | 2019-10-22 19:00 | NUR ---
BEDSIDE REPORT RECEIVED AND CARE OF PT ASSUMED. PT LYING IN SUPINE POSITION WITH EYES CLOSED. IV TO RIGHT WRIST SALINE LOCKED. PUREWICK EXTERNAL CATHETER IN USE. WILL MONITOR FOR NEEDS.
--- NOTE | 2019-10-22 19:45 | NUR ---
CALLED RT PER PT REQUEST FOR AN UPDRAFT TREATMENT.
[2019-10-22 20:00] VITALS: BP 122/78
[2019-10-23 04:00] VITALS: BP 129/67
[2019-10-23 04:49] LABS: BASOPHILS 0.8 % (0-2); EOSINOPHILS 8.4 % (0-7); HEMATOCRIT 38.9 % (36.0-48.0); IMMATURE GRANULOCYTES 0.1 % (0-5); LYMPHOCYTES 16.2 % (15-50); MCH 28.6 pg (26.0-34.0); MCHC 30.8 g/dL (31.0-37.0); MCV 92.8 fL (80.0-100.0); MEAN PLATELET VOLUME 9.2 fL (7.4-10.4); MONOCYTES 10.6 % (2-11); NEUTROPHILS 63.9 % (40-80); PLATELET COUNT 467 10x3/uL (130-400); RBC 4.19 10x6/uL (4.00-5.40); RDW 14.4 % (11.5-14.5); WBC 7.8 10x3/uL (4.8-10.8)
[2019-10-23 05:14] LABS: ALBUMIN 3.1 g/dL (3.4-5.0); ALKALINE PHOSPHATASE 137 U/L (30-120); ALT (SGPT) 13 U/L (10-68); BILIRUBIN - TOTAL 0.39 mg/dL (0.2-1.3); CALC OSMOLALITY 270 mosm/kg (275-300); CALCIUM 9.2 mg/dL (8.5-10.1); CARBON DIOXIDE 29.2 mmol/L (21.0-32.0); CHLORIDE - SERUM 99 mmol/L (98-107); CREATININE - SERUM 0.6 mg/dL (0.6-1.3); GLUCOSE 98 mg/dL (74-106); MAGNESIUM - SERUM 2.1 mg/dL (1.8-2.4); POTASSIUM - SERUM 4.2 mmol/L (3.5-5.1); PROTEIN - SERUM 8.1 g/dL (6.4-8.2); SODIUM 136 mmol/L (136-145); UREA NITROGEN 11 mg/dL (7-18); eGFR NON AFRICAN AMERICAN > 90 mL/min (90-120)
[2019-10-23 08:02] VITALS: BP 107/82
--- NOTE | 2019-10-23 08:21 | NUR ---
SHE IS AWAKE TALKING. SETTING UP ON THE SIDE OF THE BED FOR BREAKFAST. SHE CAN MOVE HER LEFT LEG, THE MOVEMENT IN THE LEFT ARM IS LIMITED. SHE HAS A HAND TOWEL ROLLED UP AND PLACED IN HER LEFT HAND TO KEEP FINGERS FROM CONTRACTURES.
--- NOTE | 2019-10-23 11:11 | NUR ---
Rehab Prescreening Consult recieved and the chart has been reviewed. She is managed Medicare and will require a preauth. She has a OT and ST still pending. These will need to be completed prior to submitting information to them for review. Essence Tamayo RN Clinical Liaison, Rehab
[2019-10-23 11:45] VITALS: BP 104/60
--- NOTE | 2019-10-23 13:40 | NUR ---
Attempted to call patient's insurance as listed on the face sheet, recieved answer from Dr Chávez's office in [place]. His office state they have never seen the patient and have no information regarding her insurance. Discussed with the CM Ekta Mcelroy RN. Essence Tamayo RN Clinical Liaison, Rehab
--- NOTE | 2019-10-23 13:48 | NUR ---
Nutrition follow-up: Pt receiving a low sodium diet with po intake ~70% average of last 6 meals Pt coughing badly at this time; RDN did not visit. Labs reviewed Wt: 135# Will continue to provide food choices and honor food preferences. Will offer nutritional supplements. RDN following.
--- NOTE | 2019-10-23 15:46 | NUR ---
OT NOTE: PT COMPLETED LUE PROM TOLERATED. PAIN NOTED IN L ELBOW. ALSO NOTED WERE SEVERAL RINGS ON L HAND. CHRISTY DISCUSSED WITH NURSING L ELBOW PAIN. CHRISTY SHARED CONCERN WITH NURSE IF EDEMA OCCURS IN L HAND THE RINGS WOULD CONSTRICT CIRCULATION. NURSING AWARE AND AGREED. NURSING WILL DISCUSS WITH PATIENT. PT COMPLETED BED MOB TASKS WITH MIN A. [phone] THANK YOU, WESTLEY YUN
--- NOTE | 2019-10-23 16:24 | NUR ---
Rehab Note- Faxed in all clinicals to [facility]. Awaiting determination for possible inpatient acute rehab stay. Will continue to follow at this time. Thank you for this referral! Rosie Archibald RN Clinical Liaison, [facility] Rehab
[2019-10-23 16:49] VITALS: BP 112/73
--- NOTE | 2019-10-23 19:00 | NUR ---
BEDSIDE REPORT RECEIVED AND CARE OF PT ASSUMED. PT LYING ON RIGHT SIDE WITH EYES CLOSED. NO IV SITED. WILL MONITOR FOR NEEDS.
--- NOTE | 2019-10-23 20:30 | NUR ---
ASSISTED PT UP TO USE RESTROOM...VERY UNSTEADY ON HER FEET. WILL CONTINUE TO MONITOR FOR NEEDS.
[2019-10-23 21:50] VITALS: BP 108/59
[2019-10-24 00:03] VITALS: BP 105/62
--- NOTE | 2019-10-24 01:17 | NUR ---
CALLED RT TO REQUEST PRN UPDRAFT TX PER PT REQUEST FOR SOB.
[2019-10-24 04:54] LABS: BASOPHILS 0.5 % (0-2); EOSINOPHILS 11.8 % (0-7); HEMATOCRIT 37.6 % (36.0-48.0); HEMOGLOBIN 11.8 g/dL (12-16); IMMATURE GRANULOCYTES 0.3 % (0-5); LYMPHOCYTES 20.9 % (15-50); MCHC 31.4 g/dL (31.0-37.0); MCV 92.4 fL (80.0-100.0); MEAN PLATELET VOLUME 9.2 fL (7.4-10.4); MONOCYTES 10.2 % (2-11); NEUTROPHILS 56.3 % (40-80); PLATELET COUNT 466 10x3/uL (130-400); RBC 4.07 10x6/uL (4.00-5.40); RDW 14.2 % (11.5-14.5); WBC 7.4 10x3/uL (4.8-10.8)
[2019-10-24 05:20] LABS: ALBUMIN 2.9 g/dL (3.4-5.0); ALKALINE PHOSPHATASE 126 U/L (30-120); BILIRUBIN - TOTAL 0.36 mg/dL (0.2-1.3); CALC OSMOLALITY 265 mosm/kg (275-300); CARBON DIOXIDE 27.2 mmol/L (21.0-32.0); CHLORIDE - SERUM 100 mmol/L (98-107); CREATININE - SERUM 0.6 mg/dL (0.6-1.3); GLUCOSE 113 mg/dL (74-106); MAGNESIUM - SERUM 2.1 mg/dL (1.8-2.4); PROTEIN - SERUM 7.6 g/dL (6.4-8.2); SODIUM 133 mmol/L (136-145); UREA NITROGEN 11 mg/dL (7-18); eGFR NON AFRICAN AMERICAN > 90 mL/min (90-120)
[2019-10-24 05:22] LABS: ALT (SGPT) 9 U/L (10-68)
[2019-10-24 05:24] VITALS: BP 104/63
--- NOTE | 2019-10-24 08:24 | NUR ---
SHE IS WALKING TO THE BATHROOM WITH HELP. SHE DRAGS THE LEFT LEG AND SMALL AMOUNT OF MOVEMENT IN THE LEFT ARM. SHE HAS A CHAIR ALARM ON.
[2019-10-24 09:07] VITALS: BP 109/67
--- NOTE | 2019-10-24 10:53 | NUR ---
Rehab Note- Spoke with Frederick Lebron with [facility] on behalf of [facility] that the patient has been approved for 7 day acute inpatient rehab stay. Auth #[id number]. Fax clinicals in 7 days to [phone]. Will inform in IDT call. Thank you for this referral! Rosie Archibald RN Clinical Liaison, [facility] Rehab
--- NOTE | 2019-10-24 11:54 | NUR ---
OT NOTE: PT DOING VERY WELL. WILL BENEFIT GREATLY FROM IP REHAB SHE STRONG AND VERY MOTIVATED TO REGAIN HER INDEP. BED MOB WITH MIN ASSIST; PRACTICED AMB IWTH USE OF WALKER WITH MIN ASSIST FOR POSITIONING OF HAND AND OCCASSIONAL ASSIST FOR WALKER MGMT... REQUIRED USE OF GAIT BELT AND ALSO VERBAL CUES FOR PLACEMENT OF L LE. PT AMB GREATER THAN 75 FT. PERFORMED TOILETING WITH MIN ASSIST FOR TRANSFER; MIN ASSIST FOR DOFFING AND DONNING BRIEF; MOD ASSIST WITH TOILET HYGIENE ( PT HAS BEEN INCONT OF BOWEL FOR LAST 2 DAYS.. SHE STATES THAT SHE DOESNT KNOW THAT SHE HAS EVEN GONE TO THE BATHROOM IN HER BRIEF); REQUIRES MOD ASSIST WITH THOROUGH BATHING AND DRESSING. MUNIR HERNANDEZ, OTR/L [phone]
[2019-10-24] MEDS ORDERED: PLAVIX75 MG PO (12:01)
[2019-10-24] MEDS ORDERED: ASPIRIN81 MG PO (12:02)
[2019-10-24] MEDS ORDERED: ZOCOR40 MG PO (12:04)
[2019-10-24 12:45] VITALS: BP 113/61
--- NOTE | 2019-10-24 13:19 | MORECARE ---
CASE MANAGEMENT DISCHARGE SUMMARY PATIENT: XIMENA BECK UNIT: [id number] ADM DATE: 10/20/19 AGE: 59 : 60 SEX: F ROOM/BED: D.2204 AUTHOR: OUMAR,DOC PHYSICIAN: REFERRING PHYSICIAN: ROCIO GUERRERO MD DATE OF SERVICE: 10/24/19 Discharge Plan Patient Name: XIMENA BECK Facility: [facility]:[place] : 1960 Planned Disposition: [facility] Facility Anticipated Discharge Date: Discharge Date: Expected LOS: Initial Reviewer: [email or web address] Initial Review Date: 10/20/2019 Generated: 10/24/19 2:19 pm Comments DCP- Discharge Planning Updated by [id number]: Bri Mcelroy on 10/24/19 12:[address] Patient Name: XIMENA BECK Admission Status: ER Accout number: [id number] Admission Date: 10-20-2019 : 1960 Admission Diagnosis:CEREBRAL INFARCTION, UNSPECIFIED Attending: ROCIO GUERRERO Current LOS: 4 Anticipated DC Date: Planned Disposition: [facility] Facility Primary Insurance[place] [facility] [place] Discharge Planning Comments: CM met with patient to complete initial dc planning assessment. CM educated patient on the CM role and verbal consent given by patient to complete assessment. Patient lives at home with her daughter where she was independent with her care. At discharge patient plans to go to [place] and feels this is a safe discharge. CM discussed availability of home health, rehab services, and medical equipment. Patient has home O2, portable O2, nebulizer from [facility] [place]. IMM served and explained. SHAUNA also obtained. Patient denied known discharge needs at this time. CM will continue to follow and will assist as needed with dc plans/needs. Agricultural Plow Operator: Bri Mcelroy DCP- Discharge Planning Updated by [email or web address]: Bri Mcelroy on 10/24/19 12:[address] PER PATIENT'S NURSE, THE PATIENT WOULD LIKE TO GO TO [place]. I HAVE FAXED CLINICALS OVER TO THEM AND SPOKE WITH KARIN. I EXPLAINED TO HIM THAT SHE COULD BE DISCHARGED TODAY. WILL AWAIT ACCEPTANCE. DCPIA - Discharge Planning Initial Assessment Updated by [email or web address]: Bri Mcelroy on 10/24/19 1:17 pm * Is the patient Alert and Oriented? Yes * PCP SUKI * Pharmacy [facility] * Preadmission Environment Home with Family * ADLs Independent * Equipment Nebulizer Oxygen * List name and contact numbers for known caregivers / representatives who currently or will assist patient after discharge: SEPTEMBER (DAUGHTER) * Verbal permission to speak to the caregivers and representatives has been obtained from the patient. N/A * Additional services required to return to the preadmission environment? Yes * Can the patient safely return to the preadmission environment? No * Has this patient been hospitalized within the prior 30 days at any hospital? No External Providers External Provider: [facility] Next Contact Date: Service Request Date: Service Type: Resolution: Reviewer: Comments: Coverage Notice Reviewer: [id number] Richmond Mcelroy Notice Issued Date-Time: 10/24/2019 13:10 Notice Type: IM Discharge Notice Notice Delivered To: Patient Relationship to Patient: Diving Coach Name: Delivery Method: HAND - Hand Delivered Nadeen Days: Prior Verbal Notification: Recipient Understood Notice: Yes Recipient Signature: Yes Med Rec Note Co-signed by Attending: Coverage Notice Comment: SHAUNA WITH [facility] Reviewer: [id number] Richmond Mcelroy Notice Issued Date-Time: 10/24/2019 13:10 Notice Type: Patient Choice Letter Notice Delivered To: Patient Relationship to Patient: Diving Coach Name: Delivery Method: HAND - Hand Delivered Nadeen Days: Prior Verbal Notification: Recipient Understood Notice: Yes Recipient Signature: Yes Med Rec Note Co-signed by Attending: Coverage Notice Comment: Patient Name: XIMENA BECK Page [phone] at 1319 All edits/amendments must be made on the electronic document DICTATION DATE: 10/24/19 1319 EVENTS SOLUTIONS CONSULTANT: DANNY 10/24/19 1319 RPT#: [id number] DC DATE: STATUS: ADM IN [facility] [address] [place] [address] END OF REPORT
--- NOTE | 2019-10-24 14:33 | MORECARE ---
CASE MANAGEMENT DISCHARGE SUMMARY PATIENT: XIMENA BECK UNIT: [id number] ADM DATE: 10/20/19 AGE: 59 : 60 SEX: F ROOM/BED: D.2204 AUTHOR: OUMAR,DOC PHYSICIAN: REFERRING PHYSICIAN: ROCIO GUERRERO MD DATE OF SERVICE: 10/24/19 Discharge Plan Patient Name: XIMENA BECK Facility: [facility]:[place] : 1960 Planned Disposition: [facility] Facility Anticipated Discharge Date: Discharge Date: Expected LOS: Initial Reviewer: [id number] Initial Review Date: 10/20/2019 Generated: 10/24/19 3:33 pm Comments DCP- Discharge Planning Updated by [email or web address]: Bri Mcelroy on 10/24/19 1:[address] SPOKE WITH GUI AT [facility] THEY DID RECEIVE REFERRAL THE DON IS LOOKING OVER AND WILL LET ME KNOW ABOUT ACCEPTANCE DCP- Discharge Planning Updated by [email or web address]: Bri Mcelroy on 10/24/19 12:[address] Patient Name: XIMENA BECK Admission Status: ER Accout number: [id number] Admission Date: 10-20-2019 : 1960 Admission Diagnosis:CEREBRAL INFARCTION, UNSPECIFIED Attending: ROCIO GUERRERO Current LOS: 4 Anticipated DC Date: Planned Disposition: [facility] Facility Primary Insurance: [facility] MED[place] H[place] or PPO Discharge Planning Comments: CM met with patient to complete initial dc planning assessment. CM educated patient on the CM role and verbal consent given by patient to complete assessment. Patient lives at home with her daughter where she was independent with her care. At discharge patient plans to go to [place] and feels this is a safe discharge. CM discussed availability of home health, rehab services, and medical equipment. Patient has home O2, portable O2, nebulizer from [facility] [place]. IMM served and explained. SHAUNA also obtained. Patient denied known discharge needs at this time. CM will continue to follow and will assist as needed with dc plans/needs. Auto Body Detailer: Bri Mcelroy DCP- Discharge Planning Updated by [id number]: Bri Mcelroy on 10/24/19 12:[address] PER PATIENT'S NURSE, THE PATIENT WOULD LIKE TO GO TO [place]. I HAVE FAXED CLINICALS OVER TO THEM AND SPOKE WITH KARIN. I EXPLAINED TO HIM THAT SHE COULD BE DISCHARGED TODAY. WILL AWAIT ACCEPTANCE. DCPIA - Discharge Planning Initial Assessment Updated by [id number]: Bri Mcelroy on 10/24/19 1:17 pm * Is the patient Alert and Oriented? Yes * PCP SUKI * Pharmacy [facility] * Preadmission Environment Home with Family * ADLs Independent * Equipment Nebulizer Oxygen * List name and contact numbers for known caregivers / representatives who currently or will assist patient after discharge: SEPTEMBER (DAUGHTER) * Verbal permission to speak to the caregivers and representatives has been obtained from the patient. N/A * Additional services required to return to the preadmission environment? Yes * Can the patient safely return to the preadmission environment? No * Has this patient been hospitalized within the prior 30 days at any hospital? No Coverage Notice Reviewer: [id number] Richmond Mcelroy Notice Issued Date-Time: 10/24/2019 13:10 Notice Type: IM Discharge Notice Notice Delivered To: Patient Relationship to Patient: Teacher Citizenship Name: Delivery Method: HAND - Hand Delivered Nadeen Days: Prior Verbal Notification: Recipient Understood Notice: Yes Recipient Signature: Yes Med Rec Note Co-signed by Attending: Coverage Notice Comment: SHAUNA WITH [facility] Reviewer: [id number] Richmond Mcelroy Notice Issued Date-Time: 10/24/2019 13:10 Notice Type: Patient Choice Letter Notice Delivered To: Patient Relationship to Patient: Teacher Citizenship Name: Delivery Method: HAND - Hand Delivered Nadeen Days: Prior Verbal Notification: Recipient Understood Notice: Yes Recipient Signature: Yes Med Rec Note Co-signed by Attending: Coverage Notice Comment: Last DP export: 10/24/19 12:19 pm Patient Name: XIMENA BECK Page [phone] at 1433 All edits/amendments must be made on the electronic document DICTATION DATE: 10/24/191432 LIBRARY HISTORIAN: DANNY 10/24/191432 RPT#: [id number] DC DATE: STATUS: ADM IN [facility] [address] [place] [address] END OF REPORT
--- NOTE | 2019-10-24 15:14 | NUR ---
OT NOTE: PT COMPLETED SIT TO STAND WITH MIN A. PT COMPLETED CHAIR TO TOILET TSF WITH MIN A. PT COMPLETED TOILET HYGIENE WITH SET UP. PT COMPLETED HAND HYGIENE WITH SET UP. PT COMPLETED BED MOB WITH SBA AND SIDE RAILS. PT STATED SHE IS GOING TO [facility] FOR THERAPY. [phone] THANK YOU,WESTLEY YUN
[2019-10-24 17:47] VITALS: BP 114/75
--- NOTE | 2019-10-24 20:07 | NUR ---
PT LYING IN BED AWAKE ALERT AND ORIENTED. NO SIGNS OF DISTRESS NOTED. RESPIRATIONS EVENA AND UNLABORED. RESPIRATORY IS AT BED SIDE. CALL LIGHT IS WITH IN REACH AND SIDERAILS x2. WILL CONTINUE TO MONITOR
[2019-10-24 21:42] VITALS: BP 98/63
[2019-10-25 00:23] VITALS: BP 102/63
--- NOTE | 2019-10-25 01:49 | NUR ---
PT LYING IN BED RESTING WITH EYES CLOSED. EASILY AWAKEN WITH VOICE STIMULATION. NO SIGNS OF DISTRESS NOTED. ASSIST PT WITH RESTROOM AND BACK TO BED. CALL LIGHT WITH IN REACH. WILL CONTINUE TO MONITOR
--- NOTE | 2019-10-25 03:15 | NUR ---
I have reviewed this patient and I concur with the Shift Assessment completed by the Licensed Practical Nurse today this shift.
[2019-10-25 04:33] LABS: BASOPHILS 0.8 % (0-2); EOSINOPHILS 13.9 % (0-7); HEMATOCRIT 40.2 % (36.0-48.0); HEMOGLOBIN 12.4 g/dL (12-16); IMMATURE GRANULOCYTES 0.2 % (0-5); LYMPHOCYTES 21.3 % (15-50); MCHC 30.8 g/dL (31.0-37.0); MCV 93.9 fL (80.0-100.0); MEAN PLATELET VOLUME 9.1 fL (7.4-10.4); MONOCYTES 12.1 % (2-11); NEUTROPHILS 51.7 % (40-80); PLATELET COUNT 477 10x3/uL (130-400); RBC 4.28 10x6/uL (4.00-5.40); RDW 14.2 % (11.5-14.5); WBC 6.5 10x3/uL (4.8-10.8)
[2019-10-25 04:56] LABS: ALBUMIN 3.2 g/dL (3.4-5.0); ALKALINE PHOSPHATASE 142 U/L (30-120); BILIRUBIN - TOTAL 0.28 mg/dL (0.2-1.3); CALCIUM 9.4 mg/dL (8.5-10.1); CARBON DIOXIDE 31.8 mmol/L (21.0-32.0); CHLORIDE - SERUM 100 mmol/L (98-107); CREATININE - SERUM 0.6 mg/dL (0.6-1.3); GLUCOSE 110 mg/dL (74-106); MAGNESIUM - SERUM 2.4 mg/dL (1.8-2.4); POTASSIUM - SERUM 4.4 mmol/L (3.5-5.1); PROTEIN - SERUM 8.2 g/dL (6.4-8.2); SODIUM 135 mmol/L (136-145); eGFR NON AFRICAN AMERICAN > 90 mL/min (90-120)
[2019-10-25 04:57] LABS: ALT (SGPT) 17 U/L (10-68); CALC OSMOLALITY 271 mosm/kg (275-300); UREA NITROGEN 14 mg/dL (7-18)
[2019-10-25 06:04] VITALS: BP 87/67
--- NOTE | 2019-10-25 07:22 | NUR ---
RECEIVED PT FROM LOTTERY CLERK. RESTING WITH EYES CLOSED UPON ENTERING. PT IS REPORTED ALERT AND ORIENTED, STAND BY ASSIST, HAS LEFT SIDED WEAKNESS FROM CVA. PT HAS NO IV AND IS ON ROOM AIR. BED IN LOWEST POSITION, BED RAILS X2, CALL LIGHT WITHIN REACH. WILL CONTINUE TO MONITOR.
--- NOTE | 2019-10-25 09:23 | NUR ---
ADMINISTERED MEDICATION AT THIS TIME, NO DIFFICULTY. PUT NEW NICODERM PATCH ON TOOK OLD ONE OFF. PT IS RESTING COMFORTABLY IN BED. DENIES ANY NEEDS AT THIS TIME. BED IN LOWEST POSITION, BED RAILS X2, CALL LIGHT WITHIN REACH. WILL CONTINUE TO MONITOR.
[2019-10-25 09:47] VITALS: BP 167/92
[2019-10-25 13:17] VITALS: BP 133/85
--- NOTE | 2019-10-25 13:20 | NUR ---
OT NOTE: PT PERFORMED WELL TODAY. REPORTED THAT SHE TOOK SHOWER WITH ONLY SBA THIS AM. PT AMB WITH WALKER AND MIN ASSIST X 120 FT WITH OCCASSIONAL ASSIST WITH WALKER MGMT AND ASSIST WITH HAND. TOILET TRANSFERS WITH MIN ASSIST; TOILET HYGIENE WITH MIN ASSIST; PERFORMED WT BEARING ACT WITH L UE; A/AROM EXS WITH L HAND/UE. PT DOING VERY WELL. MUNIR HERNANDEZ, OTR/L [phone]
--- NOTE | 2019-10-25 13:49 | MORECARE ---
CASE MANAGEMENT DISCHARGE SUMMARY PATIENT: XIMENA BECK UNIT: [id number] ADM DATE: 10/20/19 AGE: 59 : 60 SEX: F ROOM/BED: D.2204 AUTHOR: OUMAR,DOC PHYSICIAN: REFERRING PHYSICIAN: ROCIO GUERRERO MD DATE OF SERVICE: 10/25/19 Discharge Plan Patient Name: IXMENA BECK Facility: [facility]:[place] : 1960 Planned Disposition: [facility] Facility Anticipated Discharge Date: Discharge Date: Expected LOS: Initial Reviewer: [id number] Initial Review Date: 10/20/2019 Generated: 10/25/19 2:48 pm Comments DCP- Discharge Planning Updated by [email or web address]: Bri Mcelroy on 10/25/19 12:[address] Patient does not want to hold up her therapy and is agreeable to inpatient rehab at [facility]. DCP- Discharge Planning Updated by [id number]: Bri Mcelroy on 10/24/19 1:[address] SPOKE WITH GUI AT [facility] THEY DID RECEIVE REFERRAL THE DON IS LOOKING OVER AND WILL LET ME KNOW ABOUT ACCEPTANCE DCP- Discharge Planning Updated by [id number]: Bri Mcelroy on 10/24/19 12:[address] Patient Name: XIMENA BECK Admission Status: ER Accout number: [id number] Admission Date: 10-20-2019 : 1960 Admission Diagnosis:CEREBRAL INFARCTION, UNSPECIFIED Attending: ROCIO GUERRERO Current LOS: 4 Anticipated DC Date: Planned Disposition: [facility] Facility Primary Insurance: [employer] MEDICARE HMO or PPO Discharge Planning Comments: CM met with patient to complete initial dc planning assessment. CM educated patient on the CM role and verbal consent given by patient to complete assessment. Patient lives at home with her daughter where she was independent with her care. At discharge patient plans to go to [place] and feels this is a safe discharge. CM discussed availability of home health, rehab services, and medical equipment. Patient has home O2, portable O2, nebulizer from [facility]. IMM served and explained. SHAUNA also obtained. Patient denied known discharge needs at this time. CM will continue to follow and will assist as needed with dc plans/needs. Sex Therapist: Bri Mcelroy DCP- Discharge Planning Updated by [id number]: Bri Mcelroy on 10/24/19 12:[address] PER PATIENT'S NURSE, THE PATIENT WOULD LIKE TO GO TO [place]. I HAVE FAXED CLINICALS OVER TO THEM AND SPOKE WITH KARIN. I EXPLAINED TO HIM THAT SHE COULD BE DISCHARGED TODAY. WILL AWAIT ACCEPTANCE. DCPIA - Discharge Planning Initial Assessment Updated by [id number]: Bri Mcelroy on 10/24/19 1:17 pm * Is the patient Alert and Oriented? Yes * PCP SUKI * Pharmacy [facility] * Preadmission Environment Home with Family * ADLs Independent * Equipment Nebulizer Oxygen * List name and contact numbers for known caregivers / representatives who currently or will assist patient after discharge: SEPTEMBER (DAUGHTER) * Verbal permission to speak to the caregivers and representatives has been obtained from the patient. N/A * Additional services required to return to the preadmission environment? Yes * Can the patient safely return to the preadmission environment? No * Has this patient been hospitalized within the prior 30 days at any hospital? No Coverage Notice Reviewer: [id number] Richmond Mcelroy Notice Issued Date-Time: 10/24/2019 13:10 Notice Type: IM Discharge Notice Notice Delivered To: Patient Relationship to Patient: Website Project Manager Name: Delivery Method: HAND - Hand Delivered Nadeen Days: Prior Verbal Notification: Recipient Understood Notice: Yes Recipient Signature: Yes Med Rec Note Co-signed by Attending: Coverage Notice Comment: [facility] Reviewer: [id number] Richmond Mcelroy Notice Issued Date-Time: 10/24/2019 13:10 Notice Type: Patient Choice Letter Notice Delivered To: Patient Relationship to Patient: Website Project Manager Name: Delivery Method: HAND - Hand Delivered Nadeen Days: Prior Verbal Notification: Recipient Understood Notice: Yes Recipient Signature: Yes Med Rec Note Co-signed by Attending: Coverage Notice Comment: Last DP export: 10/24/19 1:33 pm Patient Name: XIMENA BECK Page 32975 at 1349 All edits/amendments must be made on the electronic document DICTATION DATE: 10/25/19 1348 MEDICATION TECH: DANNY 10/25/19 1348 RPT#: [id number] DC DATE: STATUS: ADM IN [facility] [address] [place] [address] END OF REPORT
--- NOTE | 2019-10-25 13:56 | NUR ---
PT HAS SIGNED DISCHARGE PAPERWORK. WILL BE TRANSFERING TO INPATIENT REHAB DOWNSTAIRS. JUST WAITING FOR A BED. DENIES ANY NEEDS AT THIS TIME. WILL CONTINUE TO MONITOR.
--- NOTE | 2019-10-25 14:33 | NUR ---
OT NOTE: PT COMPLETED BED MOB TASKS WITH SBA. PT COMPLETED SUPINE TO SIT WITH SBA. PT COMPLETED SITTING BALANCE AT EOB WITH DONNING SOCKS REQUIRED SBA. PT IS MOTIVATED AND PROGRESSING WELL. [phone] THANK YOU,WESTLEY YUN
--- NOTE | 2019-10-25 15:00 | NUR ---
CALLED REPORT TO INDY HUTCHINSON IN REHAB.
--- NOTE | 2019-10-25 23:57 | MORECARE ---
CASE MANAGEMENT DISCHARGE SUMMARY PATIENT: XIMENA BECK UNIT: [id number] ADM DATE: 10/20/19 AGE: 59 : 60 SEX: F ROOM/BED: D.2204 AUTHOR: OUMAR,DOC PHYSICIAN: REFERRING PHYSICIAN: ROCIO GUERRERO MD DATE OF SERVICE: 10/25/19 Discharge Plan Patient Name: XIMENA BECK Facility: [facility]:[place] : 1960 Planned Disposition: Group Home Facility Anticipated Discharge Date: Discharge Date: 10/25/2019 Expected LOS: Initial Reviewer: [email or web address] Initial Review Date: 10/20/2019 Generated: 10/26/19 12:57 am Comments DCP- Discharge Planning Updated by [email or web address]: Bri Mcelroy on 10/25/19 12:[address] Patient does not want to hold up her therapy and is agreeable to inpatient rehab at [facility]. DCP- Discharge Planning Updated by [email or web address]: Bri Mcelroy on 10/24/19 1:[address] SPOKE WITH GUI AT [facility] THEY DID RECEIVE REFERRAL THE DON IS LOOKING OVER AND WILL LET ME KNOW ABOUT ACCEPTANCE DCP- Discharge Planning Updated by [email or web address]: Bri Mcelroy on 10/24/19 12:[address] Patient Name: XIMENA BECK Admission Status: ER Accout number: [id number] Admission Date: 10-20-2019 : 1960 Admission Diagnosis:CEREBRAL INFARCTION, UNSPECIFIED Attending: ROCIO GUERRERO Current LOS: 4 Anticipated DC Date: Planned Disposition: Group Home Facility Primary Insurance: [employer] MEDICARE HMO or PPO Discharge Planning Comments: CM met with patient to complete initial dc planning assessment. CM educated patient on the CM role and verbal consent given by patient to complete assessment. Patient lives at home with her daughter where she was independent with her care. At discharge patient plans to go to [place] and feels this is a safe discharge. CM discussed availability of home health, rehab services, and medical equipment. Patient has home O2, portable O2, nebulizer from [facility] [place]. IMM served and explained. SHAUNA also obtained. Patient denied known discharge needs at this time. CM will continue to follow and will assist as needed with dc plans/needs. Is Architect: Bri Mcelroy DCP- Discharge Planning Updated by [email or web address]: Bri Mcelroy on 10/24/19 12:[address] PER PATIENT'S NURSE, THE PATIENT WOULD LIKE TO GO TO [facility]. I HAVE FAXED CLINICALS OVER TO THEM AND SPOKE WITH KARIN. I EXPLAINED TO HIM THAT SHE COULD BE DISCHARGED TODAY. WILL AWAIT ACCEPTANCE. DCPIA - Discharge Planning Initial Assessment Updated by [email or web address]: Bri Mcelroy on 10/24/19 1:17 pm * Is the patient Alert and Oriented? Yes * PCP [facility] * Pharmacy [facility] * Preadmission Environment Home with Family * ADLs Independent * Equipment Nebulizer Oxygen * List name and contact numbers for known caregivers / representatives who currently or will assist patient after discharge: SEPTEMBER (DAUGHTER) * Verbal permission to speak to the caregivers and representatives has been obtained from the patient. N/A * Additional services required to return to the preadmission environment? Yes * Can the patient safely return to the preadmission environment? No * Has this patient been hospitalized within the prior 30 days at any hospital? No Coverage Notice Reviewer: [id number] Richmond Mcelroy Notice Issued Date-Time: 10/24/2019 13:10 Notice Type: IM Discharge Notice Notice Delivered To: Patient Relationship to Patient: Open Tenter Operator Name: Delivery Method: HAND - Hand Delivered Nadeen Days: Prior Verbal Notification: Recipient Understood Notice: Yes Recipient Signature: Yes Med Rec Note Co-signed by Attending: Coverage Notice Comment: SHAUNA WITH [facility] Reviewer: [id number] Richmond Mcelroy Notice Issued Date-Time: 10/24/2019 13:10 Notice Type: Patient Choice Letter Notice Delivered To: Patient Relationship to Patient: Open Tenter Operator Name: Delivery Method: HAND - Hand Delivered Nadeen Days: Prior Verbal Notification: Recipient Understood Notice: Yes Recipient Signature: Yes Med Rec Note Co-signed by Attending: Coverage Notice Comment: Last DP export: 10/25/19 12:49 pm Patient Name: XIMENA BECK Page [id number] at 4739 All edits/amendments must be made on the electronic document DICTATION DATE: 10/25/193 HAND TAPPER: DANNY 10/25/192356 RPT#: [id number] ND DATE:10/25/19 STATUS: DIS IN [facility] [address] [place] [address] END OF REPORT
== END 2019-10-25 15:34 | DRG 65 ==
LOC: D.ER 14:32 → D.MS 16:59 → D.ER 17:25 → D.MS 10-25 15:34
PROVIDERS: Emergency Medicine; Family Medicine Adult Medicine; Internal Medicine Nephrology; ADMIT Family Medicine; ATTEND Family Medicine
DX: I63.9 Cerebral infarction, unspecified (principal); G81.94 Hemiplegia, unspecified affecting left nondominant side; I50.22 Chronic systolic (congestive) heart failure; F17.203 Nicotine dependence unspecified, with withdrawal; R29.810 Facial weakness; R47.1 Dysarthria and anarthria; J44.9 Chronic obstructive pulmonary disease, unspecified; E78.5 Hyperlipidemia, unspecified; L97.519 Non-pressure chronic ulcer of other part of right foot with unspecified severity; E87.6 Hypokalemia; D64.9 Anemia, unspecified

== ENCOUNTER 2019-10-25 16:04 | Inpatient (IN) | payer MEDICARE ==
[~2019-10-25] VITALS: Ht 168.9 cm; Wt 64.0 kg
--- NOTE | 2019-10-25 15:40 | NUR ---
RECIEVED FROM ACUTE FLOOR/WC TO ROOM 1116.ORIENTED TO ROOM AND SURROUNDINGS.
[~2019-10-25 16:04] MED LIST changes: +ASPIRIN81 MG PO; +PLAVIX75 MG PO; +ZOCOR40 MG PO
[2019-10-25 18:49] VITALS: BP 123/78; BMI 22.4
--- NOTE | 2019-10-25 20:12 | NUR ---
NEW ADMIT, PT UP TO TOILET, NO OTHER NEEDS NOTED, ALARM WAIVER SIGNED AND IN CHART, FLUIDS/CALL LIGHT WITHIN REACH
[2019-10-25 21:42] VITALS: BP 123/72
[2019-10-26 07:37] LABS: BASOPHILS 1.1 % (0-2); EOSINOPHILS 16.5 % (0-7); HEMATOCRIT 39.7 % (36.0-48.0); HEMOGLOBIN 12.3 g/dL (12-16); IMMATURE GRANULOCYTES 0.2 % (0-5); LYMPHOCYTES 19.8 % (15-50); MCV 93.6 fL (80.0-100.0); MEAN PLATELET VOLUME 9.1 fL (7.4-10.4); MONOCYTES 10.3 % (2-11); NEUTROPHILS 52.1 % (40-80); PLATELET COUNT 476 10x3/uL (130-400); RBC 4.24 10x6/uL (4.00-5.40); WBC 6.3 10x3/uL (4.8-10.8)
[2019-10-26 07:50] LABS: CALC OSMOLALITY 273 mosm/kg (275-300); CALCIUM 9.2 mg/dL (8.5-10.1); CARBON DIOXIDE 31.5 mmol/L (21.0-32.0); CHLORIDE - SERUM 100 mmol/L (98-107); CREATININE - SERUM 0.6 mg/dL (0.6-1.3); GLUCOSE 91 mg/dL (74-106); POTASSIUM - SERUM 4.3 mmol/L (3.5-5.1); SODIUM 137 mmol/L (136-145); UREA NITROGEN 13 mg/dL (7-18); eGFR NON AFRICAN AMERICAN > 90 mL/min (90-120)
[2019-10-26 08:00] VITALS: BP 101/66
[2019-10-26 14:07] VITALS: Ht 168.9 cm; Wt 64.0 kg
[2019-10-26 20:54] VITALS: BP 129/64
--- NOTE | 2019-10-27 02:40 | NUR ---
PT IN BED ASLEEP, AROUSES EASILY TO VOICE, NO NEEDS NOTED, FLUIDS/CALL LIGHT WITHIN REACH, ALARM WAIVER SIGNED AND IN CHART, PT IS CVA LEFT SIDE, CAN MOVE LEG FAIRLY WELL, USES RT HAND TO PLACE LFT HAND ON WALKER, TOILETS SELF WITH SBA, PT HAS UNKNOWN CAUSE OF ULCER TOP OF LFT FOOT DRAINS ZAMORA EXUDATE, WOUND CONSULT ORDERED
[2019-10-27 06:14] LABS: BASOPHILS 1.1 % (0-2); EOSINOPHILS 13.3 % (0-7); HEMATOCRIT 35.6 % (36.0-48.0); HEMOGLOBIN 11.1 g/dL (12-16); IMMATURE GRANULOCYTES 0.2 % (0-5); LYMPHOCYTES 19.5 % (15-50); MCHC 31.2 g/dL (31.0-37.0); MONOCYTES 10.9 % (2-11); PLATELET COUNT 457 10x3/uL (130-400); RBC 3.83 10x6/uL (4.00-5.40); RDW 13.9 % (11.5-14.5); WBC 6.2 10x3/uL (4.8-10.8)
[2019-10-27 06:23] LABS: CALC OSMOLALITY 273 mosm/kg (275-300); CALCIUM 9.1 mg/dL (8.5-10.1); CARBON DIOXIDE 28.6 mmol/L (21.0-32.0); CHLORIDE - SERUM 103 mmol/L (98-107); CREATININE - SERUM 0.5 mg/dL (0.6-1.3); GLUCOSE 99 mg/dL (74-106); POTASSIUM - SERUM 4.1 mmol/L (3.5-5.1); SODIUM 137 mmol/L (136-145); UREA NITROGEN 12 mg/dL (7-18); eGFR NON AFRICAN AMERICAN > 90 mL/min (90-120)
[2019-10-27 08:18] VITALS: BP 123/70
--- NOTE | 2019-10-27 12:39 | NUR ---
SITTING UP IN CHAIR IN ROOM WITH TRAY IN FRONT OF HER FOR LUNCH. SHE DENIES NEEDS OR C/O. LUIS ALFREDO HAS GROSS WEAKNESS. SHE SPEECH IS CLEAR. CALL LIGHT IN REACH
--- NOTE | 2019-10-27 13:54 | NUR ---
DR NGUYEN IN HER ROOM ADDRESSING HER RT DORSAL FOOT SKIN SPOT. HE TOOK PUNCH BX OF AREA. PT TOLERATED WELL.
--- NOTE | 2019-10-27 20:09 | NUR ---
PT IN BED, NO NEEDS NOTED, ALARM WAIVER IN CHART, FLUIDS/CALL LIGHT WITHIN REACH
[2019-10-28 00:50] VITALS: BP 106/59
[2019-10-28 08:00] VITALS: BP 88/52
[2019-10-28 19:00] VITALS: BP 140/77
--- NOTE | 2019-10-28 19:12 | NUR ---
PT IS SITTING UP ON SIDE OF BED WHEN INTERING ROOM. ISOLATION OBSERVED WITH PROPER GEAR. SHE IS A&OX4, VS ARE STABLE. PT VOICED"WOULD YOU MIND BRINGNIG ME ALL THE STUFF TO TAKE A SHOWER AND SOME LIP MOISTURIZER". PROVIDED PT WITH ALL REQUESTED MATERIAL. SHE SAID "THANK YOU". PT VOICES NO NEEDS OR CONCERNS AT THIS TIME. BED IS LOW,SIDE RAISLX2,CALL LIGHT WITHIN REACH. WILL CONTINEU TO MONITOR
--- NOTE | 2019-10-28 20:23 | NUR ---
JUST ADMINISTERED PAIN PILL THAT IS ORDERED PRN FOR PAIN. PT VOICED "IV WORKED MY LEFT ARM PRETTY HARD TODAY AND ITS HURITNG ME". PT ALSO ASKED IF SHE COULD HAVE A CHOCLATE PUDDING FOR A SNACK. PROVIDED HER WITH PUDDING AND FRESH CUP OF WATER. PT VOICED "O THANK YOU". PT IS SITTING UP IN BED AND JUST FINISHED GIVING HERSELF A SHOWER. I HAD PROVIDED HER WITH ALL NEW LINENS, TOWELS, WASHCLOTH AND BODY WASH PER REQUEST FROM PT. SHE KEPT HER RIGHT FOOT DRESSING DRY ALREADY EDUCATED. NO OTHER REQUEST VOICED. BED IS LOW,SIDE RAILSX2,CALL LIGHT WITHIN REACH. WILL CONITNUE TO MONITOR
--- NOTE | 2019-10-28 22:29 | NUR ---
PT IS RESTING IN BED ON RIGHT SIDE WITH EYES CLOSED. RR ARE NOTED. PT IS PINK, AND WARM. BED IS LOW,SIDE RAILSX2,CALL LGIHT WITHIN REACH. WILL CONITNUE TO MONITOR
--- NOTE | 2019-10-29 01:15 | NUR ---
PT IS RESTING IN BED WITH EYES CLOSED. NOTED RR AND PT IS PINK AND WARM. BED IS LOW,SIDE RAILSX2,CALL LIGHT WTHIIN REACH. WILL CONITUE TO MONITOR
--- NOTE | 2019-10-29 03:25 | NUR ---
PT IS RESTING IN BED WITH EYES CLOSED. RR OBSERVED. BED IS LOW,SIDE RAILSX2,CALL LIGHT WITHIN REACH. WILL CONTINUE TO MONITOR
--- NOTE | 2019-10-29 05:49 | NUR ---
PT IS RESTIGN IN BED WITH EYES CLOSED. RR OBSERVED. BED IS LOW,SIDE RAISLX2,CALL LIGHT WITHIN REACH. WILL CONTINUE TO MONTIOR
[2019-10-29 08:00] VITALS: BP 138/60
--- NOTE | 2019-10-29 09:56 | NUR ---
HAS BEEN UP IN ROOM FOR BREAKFAST AND IS NOW LAYING DOWN TO REST. SHE DOES HER OWN PROM EXERCISES TO LUE. DENIES PAIN. SCAB NOTED TO TOP OF HER FOOT WHERE PUNCH BX WAS TAKEN. DENIES NEEDS. CALL LIGHT IN REACH. BED IN LOWEST POSITION. SIDE RAILS UP X2
--- NOTE | 2019-10-29 17:55 | NUR ---
HAS BEEN DOING MORE PROM TO LUE TODAY. DENIES INCREASED PAIN. SMALL AMT OF DRAINAGE NOTED FROM TOP OF FOOT WHERE BX WAS DONE. CALL LIGHT IN REACH
[2019-10-29 19:00] VITALS: BP 107/72
--- NOTE | 2019-10-29 19:30 | NUR ---
PT IS RESTING IN BED. UPON ARRIVNING INTO ROOM SHE SITS UP ON SIDE OF BED. VSS. A&OX4. ASKED IF HE COULD HAVE A FRESH CUP OF WATER C ICE. FULL ASSESSMENT DONE AND WILL DOC ON FLOW SHEET. BED IS LOW,SIDE RAISLX2,CALL LIGHT WITHIN REACH. WILL CONITNUE TO [facility]
--- NOTE | 2019-10-29 19:50 | NUR ---
PT USED CALL LIGHT TO ASK IF SHE COULD HAVE A PAIN PILL. WHEN ASKING HER WHERE SHE IS HURTING SHE VOICES"IV WORKED THE HELL OUT OF MY LEFT ARM TODAY AND MY RIBS HURT WHEN I COUGH". WHEN ASKED SHE VOICED "MY RIBS HURT LIKE THIS BEFORE I EVER CAME INTO THE HOSPTIAL. LUNG SOUNDS ARE CTA, BUT SLIGHLTY DIMINISHED IN THE LOWER LOBES BILAT. DOCUMENTED AND ADMINISTERED PRN NORCO IN AUG. ALSO PROVIDED PT WITH ICE AND WATER PER REQUEST. BED IS LOW,SIDE RAISLX2,CALL LIGHT WITHIN REACH. WILL CONTINUE TO MONTIOR
--- NOTE | 2019-10-29 21:43 | NUR ---
PT IS RESTING IN BED WATCHING TV. VOICS NO NEEDS OR C/O AT THIS TIME. BED IS LOW,SIDE RAISLX2,CALL LIGHT WITHINR EACH. WILL CONITUE TO MONITOR
--- NOTE | 2019-10-29 23:10 | NUR ---
PT IS RESTING IN BED ON LEFT SIDE. RR OBSERVED. PT IS PINK AND WARM. BED IS LOW,SIDE RAISLX2,CALL LGIHT WITHIN REACH. [facility] NOITNUE TO [facility]
--- NOTE | 2019-10-30 00:48 | NUR ---
PT IS RESTING IN BED WITH EYES CLOSED. RR OBSERVED. PT IS PINK AND WARM. BED IS LOW,SIDE RAISLX2,CALL LIGHT WITHIN REACH. WILL CONITNUE TO MONITOR
--- NOTE | 2019-10-30 02:37 | NUR ---
PT IS RESTING IN BED WITH EYES CLOSED. RR OBSERVED, PT PINK AND WARM. BED IS LOW, SIDE RAISLX2, CALL LIGHT WITHIN REACH. [facility]
--- NOTE | 2019-10-30 04:48 | NUR ---
PT IS RESTING WITH EYES CLOSED. RR OBSERVED. BED IS LOW,SIDE RAILSX2,CALL LGITH WITHIN REACH. WILL CONTINUE TO MONITOR
--- NOTE | 2019-10-30 06:21 | NUR ---
PT IS RESTING IN BED WATCHIGN TV. VOICES"IM DOING OK". NO NEEDS OR C/O VOICED. VSS. BED IS LOW,SIDE RIASLX2,CALL LIGHT WITHIN REACH. WILL CONITNUE TO [facility]
[2019-10-30 06:28] LABS: CALC OSMOLALITY 272 mosm/kg (275-300); CALCIUM 8.9 mg/dL (8.5-10.1); CARBON DIOXIDE 26.4 mmol/L (21.0-32.0); CHLORIDE - SERUM 101 mmol/L (98-107); CREATININE - SERUM 0.6 mg/dL (0.6-1.3); GLUCOSE 161 mg/dL (74-106); POTASSIUM - SERUM 3.8 mmol/L (3.5-5.1); SODIUM 135 mmol/L (136-145); UREA NITROGEN 13 mg/dL (7-18); eGFR NON AFRICAN AMERICAN > 90 mL/min (90-120)
--- NOTE | 2019-10-30 07:15 | NUR ---
A/A/0X4. DENIES ANY PAIN OR DISCOMFORT AND NO REQUESTS VOICED. DRESSING TO RIGHT FOOT C/D/I. FOOT HAS SOME SLIGHT SWELLING AROUND SITE. SIDERAILS UP X 2, CALL LIGHT IN REACH AND BED IN LOW LOCKED POSITION. REMAINS IN CONTACT ISOLATION.
[2019-10-30 07:35] LABS: HEMATOCRIT 35.3 % (36.0-48.0); MCH 28.6 pg (26.0-34.0); MCHC 31.2 g/dL (31.0-37.0); MCV 91.9 fL (80.0-100.0); MEAN PLATELET VOLUME 9.1 fL (7.4-10.4); NEUTROPHILS 67.2 % (40-80); PLATELET COUNT 409 10x3/uL (130-400); RBC 3.84 10x6/uL (4.00-5.40); RDW 13.6 % (11.5-14.5); WBC 8.1 10x3/uL (4.8-10.8)
[2019-10-30 08:08] VITALS: BP 84/51
--- NOTE | 2019-10-30 09:40 | NUR ---
I have reviewed this patient and I concur with the Shift Assessment completed by the Licensed Practical Nurse today this shift.
--- NOTE | 2019-10-30 13:25 | NUR ---
CLINICAL UPDATES FAXED TO [facility] AT , AUTH. # [id number] WITH CONFORMATION RECIEVED.
--- NOTE | 2019-10-30 19:56 | NUR ---
PT IS RESTING QUIETLY IN BED WITH EYES OPEN. ALERT AND ORIENTED X 3. DENIES ACUTE PAIN OR DISCOMFORT AT THIS TIME. PT IS VERY FRIENDLY AND TALKATIVE WITH STAFF. CONTACT PRECAUTIONS OBSERVED. SR'S ARE UP X 2 IN BED. CALL LIGHT AND BEDSIDE TABLE ARE WITHIN EASY REACH.
[2019-10-30 20:00] VITALS: BP 109/58
--- NOTE | 2019-10-30 23:01 | NUR ---
RESTING IN BED WITH EYES CLOSED.
--- NOTE | 2019-10-31 02:30 | NUR ---
I have reviewed this patient and I concur with the Shift Assessment completed by the Licensed Practical Nurse today this shift.
--- NOTE | 2019-10-31 05:06 | NUR ---
RESTING IN BED WITH EYES CLOSED.
--- NOTE | 2019-10-31 07:06 | NUR ---
RECEIVED RESTING ON LEFT SIDE WITH EYES CLOSED AND RESP EVEN AND UNLABORED. SIDERAILS UP X 2, CALL LIGHT IN REACH AND BED IN LOW LOCKED POSITION. NO APPARENT PROBLEMS. WILL CONTINUE POC
[2019-10-31 07:33] VITALS: BP 124/76
--- NOTE | 2019-10-31 10:55 | NUR ---
ORDER HAS BEEN FAXED TO [facility] FOR A DANIKA WALKER. WILL CONTINUE TO FOLLOW WITH PATIENT.
--- NOTE | 2019-10-31 13:50 | NUR ---
Nutrition follow-up: Visited with pt during lunch. Pt reports appetite is good; no issues with meals at this time Diet: Regular PO intake 100% of last 3 meals Labs reviewed +bm RDN following.
--- NOTE | 2019-10-31 19:38 | NUR ---
PT IN BED ON LEFT SIDE, NO NEEDS NOTED, WAIVER SIGNED IN CHART, FLUIDS/CALL LIGHT WITHIN REACH
[2019-10-31 21:18] VITALS: BP 119/62
--- NOTE | 2019-11-01 01:08 | NUR ---
PT ASLEEP AROUSES EASILY TO VOICE, ICE WATER GIVEN, NO OTHER NEEDS NOTED, ALARM WAIVER, FLUIDS/CALL LIGHT WITHIN REACH, PT UP AD YONI
[2019-11-01 07:36] LABS: BASOPHILS 0.7 % (0-2); EOSINOPHILS 16.6 % (0-7); HEMATOCRIT 34.8 % (36.0-48.0); HEMOGLOBIN 10.6 g/dL (12-16); MCH 28.6 pg (26.0-34.0); MCHC 30.5 g/dL (31.0-37.0); MCV 94.1 fL (80.0-100.0); MEAN PLATELET VOLUME 8.9 fL (7.4-10.4); MONOCYTES 7.9 % (2-11); NEUTROPHILS 54.8 % (40-80); PLATELET COUNT 412 10x3/uL (130-400); RDW 14.1 % (11.5-14.5); WBC 6.8 10x3/uL (4.8-10.8)
[2019-11-01 07:59] LABS: CALC OSMOLALITY 269 mosm/kg (275-300); CALCIUM 8.8 mg/dL (8.5-10.1); CARBON DIOXIDE 27.1 mmol/L (21.0-32.0); CHLORIDE - SERUM 102 mmol/L (98-107); CREATININE - SERUM 0.6 mg/dL (0.6-1.3); GLUCOSE 144 mg/dL (74-106); SODIUM 134 mmol/L (136-145); UREA NITROGEN 10 mg/dL (7-18); eGFR NON AFRICAN AMERICAN > 90 mL/min (90-120)
[2019-11-01 08:51] VITALS: BP 115/60
--- NOTE | 2019-11-01 08:54 | NUR ---
PT RESTING IN BED WITH EYES OPEN CALL LIGHT IN REACH WILL MONITER
[2019-11-01] MEDS ORDERED: HYDROCODON-ACE1 EA10 PO (08:57)
--- NOTE | 2019-11-01 08:58 | RHP ---
PATIENT: XIMENA BECK MEDICAL RECORD: [id number] ACCOUNT: [id number] [facility] : 60 ADMISSION DATE: 10/25/19 REHABILITATION HISTORY AND PHYSICAL EXAMINATION POST ADMISSION PHYSICIAN EXAMINATION ADMITTING DIAGNOSIS: Cerebrovascular accident. HISTORY OF PRESENT ILLNESS: The patient is a 59-year-old female patient who had been admitted with a cerebrovascular accident involving the right hemisphere and the right middle cerebral artery. She had apparently acute onset of left-sided weakness, numbness, and dysarthria. On the day before coming to the hospital, the patient had some stuff to do at home, so decided to wait. She had facial drooping, left arm and left leg weakness, much more pronounced in the arm and numbness diffusely. Admit CT of her head showed small vessel disease with mild atrophy without evidence of hemorrhage or acute ischemia. MRI demonstrated a right basal ganglia stroke about 1.6 cm in size. Carotid Dopplers were okay. She has got a history of tobacco use, congestive heart failure, hyperlipidemia, depression and anxiety. The patient was noted to have left upper extremity weakness, slurred speech and facial droop. She also had associated chest congestion, nonproductive cough. She was admitted with acute CVA. She has been seen and evaluated by neurology PT and also OT during her stay. She needs to be monitored closely for any type of seizures or extension of her CVA, pain control. She has been on supplemental O2. She has got balance deficits, decreased activity tolerance, impaired mobility, decreased quality of life. She has got low endurance, fatigues easily, inability to care for herself and these are all self-care deficits that are dependent on her improving before she can go home. She lives at home alone, was independent with ADLs and mobility prior to discharge and currently she is set-up for max assist for ADLs and mod assist for her mobility. She and her family would like for her to return home at her prior level of care. COMORBIDITIES: Include weakness, CVA, nicotine dependence, COPD, congestive heart failure, hyperlipidemia, history of depression, anxiety, hypokalemia, normocytic anemia. PAST MEDICAL HISTORY: Significant for CHF, hyperlipidemia, COPD, depression, anxiety, mood disorder, tobacco use. PAST SURGICAL HISTORY: None. ALLERGIES: No known drug allergies. CURRENT MEDICATIONS: Include simvastatin 40 mg daily, MiraLax 17 grams in 8 ounces of water daily, she is on Plavix 75 mg daily, aspirin chewable 81 mg daily, Tylenol 650 every 4 hours p.r.n., Ventolin updrafts, [place] 10/325 one tab every 4 hours p.r.n. pain. HABITS: Does have a history of tobacco use, ongoing. FAMILY HISTORY: Noncontributory. SOCIAL HISTORY: The patient hopes to return back home and get back to her prior level of functioning. HISTORY AND PHYSICAL [id number] XIMENA BECK REVIEW OF SYSTEMS: GENERAL: Does complain of some weakness and fatigue, especially on the left. HEENT: Denies cold, cough, or congestion. CARDIOVASCULAR: Denies any chest pain. PHYSICAL EXAMINATION: VITAL SIGNS: Stable, afebrile. GENERAL: A well-developed elderly female, in no acute distress upon exam. HEENT: Normocephalic and atraumatic. Mucosa moist. NECK: Supple. No lymphadenopathy. LUNGS: Clear at this time. No wheezing, rhonchi or rales. HEART: Regular rate and rhythm. No murmurs, rubs, or gallops. ABDOMEN: Soft, benign and nondistended. Positive bowel sounds times 4. EXTREMITIES: No clubbing, cyanosis or edema. NEUROLOGIC: She does have noted weakness, especially in her left upper extremity. She does have some noted mildly slurred speech. LABORATORY DATA: Her white count is 6.3, H&H of 12 and 39, and platelet count is 476. Her sodium is 137, potassium 4.3, BUN and creatinine of 13 and 0.6 and blood sugar is noted to be 91. ASSESSMENT: This is a 59-year-old female patient admitted to rehab with a working diagnosis of cerebrovascular accident involving the left side of her body. The patient has potential to make improvement. We instituted the following multidisciplinary therapies including, not limited to physical, occupational, respiratory, speech, nutritional services, prosthetics and orthotics. Given her complex medical conditions and risks for more complications, rehabilitation services cannot be provided at a low level of care such a detention facility. PLAN: 1. Admit to [facility] for intensive inpatient therapy to include the following disciplines: A. Physical therapy to improve gait, all transfer skills and bed mobility to a modified independent level. B. Occupational therapy to improve activities of daily living. C. Case management to assist with discharge planning and placement options. D. Nutrition to assist with nutritional needs. E. Rehabilitation nursing to assist in monitoring the patient's underlying medical conditions and to assist with any type bowel or bladder management. 2. The patient's current medication and medical care will be continued. 3. The patient will be placed on standard fall precautions. 4. Continue on aspirin and Plavix as prescribed. 5. I will see again in the a.m. TRANSINT:[id number] Voice Confirmation ID: [id number] DOCUMENT ID: [id number] JAVED notes whether there has been none or any medical/functional change since admission: - No change since preadmission screen. JAVED attests patient continues to be appropriate for IRF: - Continues to be appropriate. HISTORY AND PHYSICAL [id number] XIMENA BECK,FE FAITH MD at 0858 CC: [id number] DICTATION DATE: 10/26/1904 CORPORATE REAL ESTATE MANAGER: 10/26/19 0933 ADM IN [place] [id number] [place] [id number]
[2019-11-01] MEDS ORDERED: XANAX0.5 MG PO (11:45)
--- NOTE | 2019-11-01 11:45 | NUR ---
PT DISCHARGED TO HOME VIA WHEELCHAIR WITH DISCHARGE SUMMARY AND MEDS REVIEWED WITH PT ALL MEDS CALLED TO [facility] PT TOLERATED WELL.
[2019-11-01] MEDS ORDERED: NICOTINE P1 PATCH .3 (11:46)
--- NOTE | 2019-11-01 13:35 | NUR ---
PATIENT DISCHARGING HOME WITH FAMILY TODAY. [facility] PROVID[facility] AT HOME. [facility]ER TO PATIENT. DR. COHN 11/10/19 @ 1:15. SHAUNA SIGNED, IMM SERVED AND EXPLAINED, ONE GIVEN TO PATIENT AND ONE FILED IN CHART. DISCHARGE INSTRUCTIONS FAXED TO PCP, HOME HEALTH AND REVIEWED WITH PATIENT PER PRIMARY NURSE. DC INSTRUCTIONS FAXED TO [facility] , AUTH. # [id number] WITH CONFORMATION RECIEVED
== END 2019-11-01 13:50 | disposition home health service (06) | DRG 65 ==
LOC: D.REHAB 16:04
PROVIDERS: ADMIT Emergency Medicine; ATTEND Emergency Medicine
PROC: 0HBKXZX Excision of Right Lower Leg Skin, External Approach, Diagnostic (ICD-10-PCS; principal; 2019-10-27)
DX: I63.511 Cerebral infarction due to unspecified occlusion or stenosis of right middle cerebral artery (principal); G81.94 Hemiplegia, unspecified affecting left nondominant side; I50.22 Chronic systolic (congestive) heart failure; F17.203 Nicotine dependence unspecified, with withdrawal; R29.810 Facial weakness; R47.1 Dysarthria and anarthria; J44.9 Chronic obstructive pulmonary disease, unspecified; E78.5 Hyperlipidemia, unspecified; L97.519 Non-pressure chronic ulcer of other part of right foot with unspecified severity; E87.6 Hypokalemia; D64.9 Anemia, unspecified; D48.7 Neoplasm of uncertain behavior of other specified sites

== ENCOUNTER 2020-03-12 10:11 | Day surgery (SDC) | payer MEDICARE, MEDICAID ==
[~2020-03-12] VITALS: Ht 167.6 cm; Wt 65.3 kg
[~2020-03-12 10:11] MED LIST changes: +ANORO ELLIPTA1 EACH INH; +NICOTINE P1 PATCH .3; +XANAX0.5 MG PO
[2020-03-12 10:34] LABS: HEMATOCRIT 38.8 % (36.0-48.0); MCH 27.6 pg (26.0-34.0); MCHC 30.9 g/dL (31.0-37.0); MCV 89.4 fL (80.0-100.0); MEAN PLATELET VOLUME 8.9 fL (7.4-10.4); RBC 4.34 10x6/uL (4.00-5.40); RDW 17.4 % (11.5-14.5); WBC 10.2 10x3/uL (4.8-10.8)
[2020-03-12] MEDS ORDERED: MUCINEX600 MG PO (11:06)
[2020-03-12] MEDS ORDERED: LAMICTAL100 MG PO (11:06)
[2020-03-12] MEDS ORDERED: TESSALON PERLE100 MG PO (11:07)
[2020-03-12] MEDS ORDERED: BACTRIM 400-801 TAB PO (11:07)
[2020-03-12] MEDS ORDERED: PAXIL20 MG PO (11:07)
[2020-03-12] MEDS ORDERED: AMITRIPTYLINE100 MG PO (11:08)
[2020-03-12] MEDS ORDERED: BENADRYL25 MG PO (11:08)
[2020-03-12 11:09] VITALS: BP 146/89; Ht 167.6 cm; Wt 65.3 kg
[2020-03-12] MEDS ORDERED: HYDROCODON-ACE1 EAC7 PO (14:31)
--- NOTE | 2020-03-12 16:29 | NUR ---
1615 ON LICENSE OF [facility] BUS ARRIVED TO BUS VIA .
== END 2020-03-12 16:15 | disposition home or self-care (01) ==
LOC: D.OPS 10:11
PROVIDERS: Anesthesiology; ATTEND Podiatrist Foot & Ankle Surgery
DX: L98.0 Pyogenic granuloma (principal); J44.9 Chronic obstructive pulmonary disease, unspecified

== ENCOUNTER 2020-08-22 06:21 | Day surgery (SDC) | payer MEDICARE, MEDICAID ==
[~2020-08-22] VITALS: Ht 160 cm; Wt 63.5 kg
[~2020-08-22 06:21] MED LIST changes: +AMITRIPTYLINE100 MG PO; +BACTRIM 400-801 TAB PO; +BENADRYL25 MG PO; +HYDROCODON-ACE1 EAC7 PO; +LAMICTAL100 MG PO; +MUCINEX600 MG PO; +PAXIL20 MG PO; +TESSALON PERLE100 MG PO
[2020-08-22 06:43] LABS: BASOPHILS 1.1 % (0-2); EOSINOPHILS 4.1 % (0-7); HEMATOCRIT 37.3 % (36.0-48.0); HEMOGLOBIN 11.4 g/dL (12-16); IMMATURE GRANULOCYTES 0.1 % (0-5); LYMPHOCYTE ABS# 1.52 10x3/uL (1.18-3.74); LYMPHOCYTES 20.1 % (15-50); MCH 27.9 pg (26.0-34.0); MCHC 30.6 g/dL (31.0-37.0); MCV 91.2 fL (80.0-100.0); MEAN PLATELET VOLUME 8.4 fL (7.4-10.4); NEUTROPHIL ABS# 4.65 10x3/uL (1.56-6.13); NEUTROPHILS 61.6 % (40-80); PLATELET COUNT 490 10x3/uL (130-400); RBC 4.09 10x6/uL (4.00-5.40); RDW 18.2 % (11.5-14.5); WBC 7.6 10x3/uL (4.8-10.8)
[2020-08-22 07:28] VITALS: BP 126/68; Ht 160 cm; Wt 63.5 kg
[2020-08-22] MEDS ORDERED: BACTRIM DS TAB1 EAC1 PO (10:02)
--- NOTE | 2020-08-22 10:25 | NUR ---
POST OP SHOE APPLIED TO RT FOOT IN RR
--- NOTE | 2020-08-22 17:36 | NUR ---
IV D/C'D WITH CANNULA INTACT, PRESSURE HELD AND DRSG PLACED. DISCHARGE INSTRUCTIONS GIVEN AND PT VERBALIZED AN UNDERSTANDING. DISCHARGED HOME IN STABLE CONDITION
== END 2020-08-22 11:50 | disposition home or self-care (01) ==
LOC: D.OPS 06:21
PROVIDERS: Anesthesiology; ATTEND Podiatrist Foot & Ankle Surgery
DX: L98.0 Pyogenic granuloma (principal); M60.271 Foreign body granuloma of soft tissue, not elsewhere classified, right ankle and foot; E78.5 Hyperlipidemia, unspecified; J44.9 Chronic obstructive pulmonary disease, unspecified